=== PATIENT | male | born 1965 | race American Indian/Alaskan Native ===

== ENCOUNTER 2016-12-25 02:47 | Emergency (ER) | payer MEDICAID ==
[2016-12-25 03:06] VITALS: BP 151/112
[2016-12-25 03:51] LABS: Basophils % (Auto) 0.5 % (0.0-1.8); Eosinophils % (Auto) 1.3 % (0.0-4.3); Hemoglobin 13.4 gm/dl (11.8-15.2); Mean Corpuscular HGB Conc 33 % (32-34); Mean Corpuscular Hemoglobin 30 pg (28-32); Mean Corpuscular Volume 91 fl (84-94); Platelet Count 210 K/mm3 (140-440); Red Blood Count 4.39 M/mm3 (3.65-5.03); Red Cell Distribution Width 14.4 % (13.2-15.2); White Blood Count 5.7 K/mm3 (4.5-11.0)
[2016-12-25 04:05] LABS: BUN/Creatinine Ratio 8.88; Blood Urea Nitrogen 8 mg/dL (9-20); Calcium 8.7 mg/dL (8.4-10.2); Carbon Dioxide 23 mmol/L (22-30); Chloride 98.4 mmol/L (98-107); Glucose 100 mg/dL (75-100); Potassium 3.8 mmol/L (3.6-5.0); Sodium 138 mmol/L (137-145)
[2016-12-25 04:09] LABS: Anion Gap 20 mmol/L
--- NOTE | 2016-12-26 18:40 | ED Elopement Review ---
ED Pt Elopement review - Results review Lab results: Laboratory Tests 12/25/16 12/25/16 03:26 03:26 WBC 5.7 RBC 4.39 Hgb 13.4 Hct 40.0 MCV 91 MCH 30 MCHC 33 RDW 14.4 Plt Count 210 Lymph % (Auto) 33.1 [place] % (Auto) 12.8 H Eos % (Auto) 1.3 Baso % (Auto) 0.5 Lymph # 1.9 [place] # 0.7 Eos # 0.1 Baso # 0.0 Seg Neutrophils % 52.3 Seg Neutrophils # 3.0 Sodium 138 Potassium 3.8 Chloride 98.4 Carbon Dioxide 23 Anion Gap 20 BUN 8 L Creatinine 0.9 Estimated GFR > 60 BUN/Creatinine Ratio 8.88 Glucose 100 Calcium 8.7 Troponin T < 0.010 - Call Back decision Pt Call Back Decision: Call pt to return to ED GABINO ("feeling faint" and tachycardia should be addressed)
== END 2016-12-25 03:30 | disposition left against medical advice (07) ==
LOC: ED 02:47
DX: R51 Headache (principal); M54.9 Dorsalgia, unspecified; Z53.21 Procedure and treatment not carried out due to patient leaving prior to being seen by health care provider
CPT/HCPCS: 36415; 80048; 84484; 85025; 93005; 93010

== ENCOUNTER 2016-12-25 19:30 | Emergency (ER) | payer MEDICAID | END 2016-12-25 19:50 | disposition left against medical advice (07) | LOC: ED 19:30 | DX: M25.559 Pain in unspecified hip (principal); Z53.21 Procedure and treatment not carried out due to patient leaving prior to being seen by health care provider ==

== ENCOUNTER 2021-09-02 07:56 | Inpatient (IN) | payer MEDICAID ==
[2021-09-02] MEDS ORDERED: SODIUM CHLORIDE 0.9% 500 ML 500 ML IV ONE ×2 (08:53→11:41)
[2021-09-02] MEDS ORDERED: CEFEPIME/NS 2 GM/100 ML 2 GM/100 ML BAG IV ONE (09:01)
[2021-09-02] MEDS ORDERED: metroNIDAZOLE/NS 500 MG/100 ML 500 MG/100 ML BAG IV ONE (09:01)
--- NOTE | 2021-09-02 09:18 | Emergency Department Report ---
HPI - General Chief Complaint: Pain General Time Seen by Provider: 09/02/21 08:29 - HPI HPI: 55-year-old male with history of CAD and CHF as well as nonsustained V. tach on beta-blockers and HIV not currently on antiretroviral therapy presents with a number of symptoms, namely, worsening low back pain over the past 2 weeks as well as lower extremity weakness for 1 day. The patient states that he has a history of spine surgery which happened several years ago. He says that about 3 weeks ago he suffered a fall where he landed on his back. Since then he has had worsening and progressing lower back pain. He has been taking intermittent Tylenol and Percocet for the pain. He also reports body aches, fevers, night sweats, cough, and intermittent left-sided chest pain over that same period of time. He describes chest pain as sharp, located in the left side of the chest and nonradiating lasting only a few seconds. This happens at random and is not associated with any other ACS symptoms. He says that over the last 1 day he has noticed decreased ability to walk and eventually unable to lift his legs off the bed or ambulate. On review of systems he does say that he has had some bowel/bladder incontinence over the past week. He denies saddle anesthesia. The patient denies any vision change, neck pain, headache, shortness of breath, abdominal pain, nausea/vomiting, dysuria, or any other complaints. He says he is vaccinated against COVID-19. ED Past Medical Hx - Past Medical History Hx Hypertension: Yes Hx Heart Attack/AMI: Yes (x 2) Hx Congestive Heart Failure: Yes Hx Liver Disease: Yes (hep B and hep C) Hx Arthritis: Yes (osteoarthritis) Hx HIV: Yes (No meds, unknown CD4 count) Additional medical history: sleep apnea - Surgical History Past Surgical History?: Yes Hx Coronary Stent: Yes (x 2) Additional Surgical History: neck surgery, back surgery - Social History Smoking Status: Current Every Day Smoker - Medications Home Medications: Home Medications Medication Instructions Recorded Confirmed Last Taken Type Albuterol Mdi (or & Nicu Only) 2 puff IH QID PRN #8.5 gram 08/08/21 09/02/21 Unknown Rx [ProAir HFA Inhaler] Furosemide [Lasix TAB] 20 mg PO QDAY #10 tablet 08/08/21 09/02/21 Unknown Rx Aspirin EC [Halfprin EC] 81 mg PO QDAY 30 Days #30 tablet 08/13/21 09/03/21 09/01/21 Rx AtorvaSTATin [Lipitor] 40 mg PO QHS 30 Days #30 tablet 08/13/21 09/02/21 Unknown Rx Metoprolol [Lopressor TAB] 50 mg PO BID 60 Days #30 tablet 08/13/21 09/02/21 Unknown Rx Spironolactone [Aldactone] 25 mg PO QDAY 30 Days #30 tablet 08/13/21 09/02/21 Unknown Rx Gabapentin 1 - 2 cap PO DAILY 09/03/21 09/03/21 Unknown History HYDROcodone/APAP 10-325 [[place] 2 tab PO QDAY 09/03/21 09/03/21 Unknown History 10-325 mg TAB] Hydrocodone Bit/Homatrop Me-Br 10 ml PO BID PRN 09/03/21 09/03/21 Unknown History [Hycodan 5 mg-1.5 mg/5 ml Soln] Hydrocortisone 2.5% [Hytone 2.5% 1 unit TP DAILY 09/03/21 09/03/21 Unknown History CREAM] Lidocaine [Lidoderm] 1 each TP DAILY 09/03/21 09/03/21 Unknown History Menthol [Biofreeze] 1 unit TP BID 09/03/21 09/03/21 Unknown History Oxycodone HCl/Acetaminophen 2 tab PO Q6H PRN 09/03/21 09/03/21 09/02/21 History [Percocet 10/325 mg] QUEtiapine [SEROquel] 200 mg PO QHS 09/03/21 09/03/21 Unknown History diphenhydrAMINE [Benadryl CAP] 50 mg PO BID 09/03/21 09/03/21 Unknown History lisinopriL [Lisinopril] 10 mg PO QDAY 09/03/21 09/03/21 Unknown History ED Review of Systems ROS: Stated complaint: BACK/HIP/HEART/TOOTH Other details as noted in HPI Comment: All other systems reviewed and negative Constitutional: chills, fever, other (nightsweats) Eyes: denies: eye pain, vision change ENT: denies: throat pain, congestion Respiratory: cough. denies: shortness of breath Cardiovascular: chest pain. denies: palpitations, syncope Gastrointestinal: other (bowel incontinence). denies: abdominal pain, nausea, vomiting Genitourinary: other (urinary incontinence). denies: dysuria Musculoskeletal: back pain Skin: denies: rash, lesions Neurological: weakness, numbness, paresthesias. denies: headache Physical Exam - Physical Exam Vital Signs: Vital Signs 09/02/21 08:02 Temperature 98 F Pulse Rate 110 H Respiratory 16 Rate Blood Pressure 140/83 [Left] O2 Sat by Pulse 97 Oximetry Physical Exam: GENERAL: Thin and frail male who appears older than stated age in mild distress secondary to pain. HEAD: Normocephalic. No obvious signs of trauma. ENT: Slightly dry mucous membranes. Extremely poor dentition with multiple caries including large right lower molar caries which is necrotic and with adjacent swelling of the buccal mucosa without fluctuance or obvious drainable abscess. EYES: Extraocular movements are intact. Pupils are equal round and reactive to light bilaterally NECK: Supple. Full ROM is intact. Trachea is midline. LUNGS: Nonlabored breathing. Equal chest rise bilaterally. Clear to auscultation bilaterally. CARDIOVASCULAR: Tachycardic but with regular rhythm. No murmurs or rubs apprecia edgardo. VASCULAR: Cap refill < 2 seconds. 2+ peripheral pulses. 2+ pitting edema bilaterally ABDOMEN: Abdomen is soft and nondistended. There is no significant tenderness, guarding or rebound. SKIN: Skin is warm and dry NEURO: Patient is awake, alert, and oriented. dermatology physician assistant II-XII grossly intact. Normal speech. There is profound weakness of the bilateral lower extremities just below the hip with significant bilateral lower extremity drift which hits the bed after a few seconds. In addition, there is decreased sensation to light touch noted of the entire right lower extremity just below the hip. Normal sensation throughout the left lower extremity as well as bilateral upper extremities. MUSCULOSKELETAL: No obvious deformities. No significant tenderness or joint warmth/swelling. BACK/SPINE: No there is midline tenderness noted of the lower lumbar spine only. No costovertebral angle tenderness. ED Course Vital Signs 09/02/21 08:02 Temperature 98 F Pulse Rate 110 H Respiratory 16 Rate Blood Pressure 140/83 [Left] O2 Sat by Pulse 97 Oximetry ED Medical Decision Making - Lab Data Result diagrams: 09/03/21 04:32 09/03/21 04:32 Lab Results 09/02/21 09/02/21 09/02/21 Range/Units 09:06 09:09 09:09 WBC 3.9 L (4.5-11.0) K/mm3 RBC 4.12 (3.65-5.03) M/mm3 Hgb 12.4 (11.8-15.2) gm/dl Hct 37.7 (35.5-45.6) % MCV 92 (84-94) fl MCH 30 (28-32) pg MCHC 33 (32-34) % RDW 19.8 H (13.2-15.2) % Plt Count 172 (140-440) K/mm3 Lymph % (Auto) 21.2 (13.4-35.0) % [place] % (Auto) 15.4 H (0.0-7.3) % Eos % (Auto) 8.0 H (0.0-4.3) % Baso % (Auto) 1.1 (0.0-1.8) % Lymph # (Auto) 0.8 L (1.2-5.4) K/mm3 [place] # (Auto) 0.6 (0.0-0.8) K/mm3 Eos # (Auto) 0.3 (0.0-0.4) K/mm3 Baso # (Auto) 0.0 (0.0-0.1) K/mm3 Seg Neutrophils % 54.3 (40.0-70.0) % Seg Neutrophils # 2.1 (1.8-7.7) K/mm3 ESR 8 (0-20) mm/Hr PT (12.2-14.9) Sec. INR (0.87-1.13) APTT (24.2-36.6) Sec. D-Dimer 421.08 H (0-234) ng/mlDDU Sodium (137-145) mmol/L Potassium (3.6-5.0) mmol/L Chloride (98-107) mmol/L Carbon Dioxide (22-30) mmol/L Anion Gap mmol/L BUN (9-20) mg/dL Creatinine (0.8-1.3) mg/dL Estimated GFR ml/min BUN/Creatinine Ratio % Glucose (75-100) mg/dL POC Glucose (70-105) mg/dL Lactic Acid 3.10 H* (0.7-2.0) mmol/L Calcium (8.4-10.2) mg/dL Magnesium (1.7-2.3) mg/dL Ferritin (30.0-300.0) ng/mL Total Bilirubin (0.1-1.2) mg/dL Direct Bilirubin (0-0.2) mg/dL Indirect Bilirubin mg/dL AST (5-40) units/L ALT (7-56) units/L Alkaline Phosphatase (35-129) units/L Lactate Dehydrogenase (91-180) units/L Troponin T (0.00-0.029) ng/mL C-Reactive Protein (0.00-1.30) mg/dL NT-Pro-B Natriuret Pep (0-900) pg/mL Total Protein (6.3-8.2) g/dL Albumin (3.9-5) g/dL Albumin/Globulin Ratio % Lipase (13-60) units/L Salicylates (2.8-20.0) mg/dL Acetaminophen (10.0-30.0) ug/mL Plasma/Serum Alcohol (0-0.07) % 09/02/21 09/02/21 09/02/21 Range/Units 09:09 09:09 09:09 WBC (4.5-11.0) K/mm3 RBC (3.65-5.03) M/mm3 Hgb (11.8-15.2) gm/dl Hct (35.5-45.6) % MCV (84-94) fl MCH (28-32) pg MCHC (32-34) % RDW (13.2-15.2) % Plt Count (140-440) K/mm3 Lymph % (Auto) (13.4-35.0) % [place] % (Auto) (0.0-7.3) % Eos % (Auto) (0.0-4.3) % Baso % (Auto) (0.0-1.8) % Lymph # (Auto) (1.2-5.4) K/mm3 [place] # (Auto) (0.0-0.8) K/mm3 Eos # (Auto) (0.0-0.4) K/mm3 Baso # (Auto) (0.0-0.1) K/mm3 Seg Neutrophils % (40.0-70.0) % Seg Neutrophils # (1.8-7.7) K/mm3 ESR (0-20) mm/Hr PT 13.2 (12.2-14.9) Sec. INR 0.95 (0.87-1.13) APTT 30.6 (24.2-36.6) Sec. D-Dimer (0-234) ng/mlDDU Sodium 139 (137-145) mmol/L Potassium 3.9 (3.6-5.0) mmol/L Chloride 103.5 (98-107) mmol/L Carbon Dioxide 21 L (22-30) mmol/L Anion Gap 18 mmol/L BUN 5 L (9-20) mg/dL Creatinine 0.7 L (0.8-1.3) mg/dL Estimated GFR > 60 ml/min BUN/Creatinine Ratio 7 % Glucose 63 L (75-100) mg/dL POC Glucose (70-105) mg/dL Lactic Acid (0.7-2.0) mmol/L Calcium 8.5 (8.4-10.2) mg/dL Magnesium 1.70 (1.7-2.3) mg/dL Ferritin (30.0-300.0) ng/mL Total Bilirubin 0.60 (0.1-1.2) mg/dL Direct Bilirubin 0.2 (0-0.2) mg/dL Indirect Bilirubin 0.4 mg/dL AST 92 H (5-40) units/L ALT 49 (7-56) units/L Alkaline Phosphatase 61 (35-129) units/L Lactate Dehydrogenase (91-180) units/L Troponin T 0.021 (0.00-0.029) ng/mL C-Reactive Protein (0.00-1.30) mg/dL NT-Pro-B Natriuret Pep 618.4 (0-900) pg/mL Total Protein 7.2 (6.3-8.2) g/dL Albumin 3.7 L (3.9-5) g/dL Albumin/Globulin Ratio 1.1 % Lipase 61 H (13-60) units/L Salicylates (2.8-20.0) mg/dL Acetaminophen (10.0-30.0) ug/mL Plasma/Serum Alcohol (0-0.07) % 09/02/21 09/02/2109/02/21 Range/Units 09:09 09:09 09:09 WBC (4.5-11.0) K/mm3 RBC (3.65-5.03) M/mm3 Hgb (11.8-15.2) gm/dl Hct (35.5-45.6) % MCV (84-94) fl MCH (28-32) pg MCHC (32-34) % RDW (13.2-15.2) % Plt Count (140-440) K/mm3 Lymph % (Auto) (13.4-35.0) % [place] % (Auto) (0.0-7.3) % Eos % (Auto) (0.0-4.3) % Baso % (Auto) (0.0-1.8) % Lymph # (Auto) (1.2-5.4) K/mm3 [place] # (Auto) (0.0-0.8) K/mm3 Eos # (Auto) (0.0-0.4) K/mm3 Baso # (Auto) (0.0-0.1) K/mm3 Seg Neutrophils % (40.0-70.0) % Seg Neutrophils # (1.8-7.7) K/mm3 ESR (0-20) mm/Hr PT (12.2-14.9) Sec. INR (0.87-1.13) APTT (24.2-36.6) Sec. D-Dimer (0-234) ng/mlDDU Sodium (137-145) mmol/L Potassium (3.6-5.0) mmol/L Chloride (98-107) mmol/L Carbon Dioxide (22-30) mmol/L Anion Gap mmol/L BUN (9-20) mg/dL Creatinine (0.8-1.3) mg/dL Estimated GFR ml/min BUN/Creatinine Ratio % Glucose (75-100) mg/dL POC Glucose (70-105) mg/dL Lactic Acid (0.7-2.0) mmol/L Calcium (8.4-10.2) mg/dL Magnesium (1.7-2.3) mg/dL Ferritin (30.0-300.0) ng/mL Total Bilirubin (0.1-1.2) mg/dL Direct Bilirubin (0-0.2) mg/dL Indirect Bilirubin mg/dL AST (5-40) units/L ALT (7-56) units/L Alkaline Phosphatase (35-129) units/L Lactate Dehydrogenase (91-180) units/L Troponin T (0.00-0.029) ng/mL C-Reactive Protein (0.00-1.30) mg/dL NT-Pro-B Natriuret Pep (0-900) pg/mL Total Protein (6.3-8.2) g/dL Albumin (3.9-5) g/dL Albumin/Globulin Ratio % Lipase (13-60) units/L Salicylates < 0.3 L (2.8-20.0) mg/dL Acetaminophen 15.2 (10.0-30.0) ug/mL Plasma/Serum Alcohol 0.08 H (0-0.07) % 09/02/21 09/02/21 09/02/21 Range/Units 09:09 14:02 14:02 WBC (4.5-11.0) K/mm3 RBC (3.65-5.03) M/mm3 Hgb (11.8-15.2) gm/dl Hct (35.5-45.6) % MCV (84-94) fl MCH (28-32) pg MCHC (32-34) % RDW (13.2-15.2) % Plt Count (140-440) K/mm3 Lymph % (Auto) (13.4-35.0) % [place] % (Auto) (0.0-7.3) % Eos % (Auto) (0.0-4.3) % Baso % (Auto) (0.0-1.8) % Lymph # (Auto) (1.2-5.4) K/mm3 [place] # (Auto) (0.0-0.8) K/mm3 Eos # (Auto) (0.0-0.4) K/mm3 Baso # (Auto) (0.0-0.1) K/mm3 Seg Neutrophils % (40.0-70.0) % Seg Neutrophils # (1.8-7.7) K/mm3 ESR (0-20) mm/Hr PT (12.2-14.9) Sec. INR (0.87-1.13) APTT (24.2-36.6) Sec. D-Dimer (0-234) ng/mlDDU Sodium (137-145) mmol/L Potassium (3.6-5.0) mmol/L Chloride (98-107) mmol/L Carbon Dioxide (22-30) mmol/L Anion Gap mmol/L BUN (9-20) mg/dL Creatinine (0.8-1.3) mg/dL Estimated GFR ml/min BUN/Creatinine Ratio % Glucose (75-100) mg/dL POC Glucose (70-105) mg/dL Lactic Acid 1.90 (0.7-2.0) mmol/L Calcium (8.4-10.2) mg/dL Magnesium (1.7-2.3) mg/dL Ferritin (30.0-300.0) ng/mL Total Bilirubin (0.1-1.2) mg/dL Direct Bilirubin (0-0.2) mg/dL Indirect Bilirubin mg/dL AST (5-40) units/L ALT (7-56) units/L Alkaline Phosphatase (35-129) units/L Lactate Dehydrogenase (91-180) units/L Troponin T 0.016 (0.00-0.029) ng/mL C-Reactive Protein 0.00 (0.00-1.30) mg/dL NT-Pro-B Natriuret Pep (0-900) pg/mL Total Protein (6.3-8.2) g/dL Albumin (3.9-5) g/dL Albumin/Globulin Ratio % Lipase (13-60) units/L Salicylates (2.8-20.0) mg/dL Acetaminophen (10.0-30.0) ug/mL Plasma/Serum Alcohol (0-0.07) % 09/02/21 09/02/21 09/02/21 Range/Units 14:39 14:39 16:08 WBC (4.5-11.0) K/mm3 RBC (3.65-5.03) M/mm3 Hgb (11.8-15.2) gm/dl Hct (35.5-45.6) % MCV (84-94) fl MCH (28-32) pg MCHC (32-34) % RDW (13.2-15.2) % Plt Count (140-440) K/mm3 Lymph % (Auto) (13.4-35.0) % [place] % (Auto) (0.0-7.3) % Eos % (Auto) (0.0-4.3) % Baso % (Auto) (0.0-1.8) % Lymph # (Auto) (1.2-5.4) K/mm3 [place] # (Auto) (0.0-0.8) K/mm3 Eos # (Auto) (0.0-0.4) K/mm3 Baso # (Auto) (0.0-0.1) K/mm3 Seg Neutrophils % (40.0-70.0) % Seg Neutrophils # (1.8-7.7) K/mm3 ESR (0-20) mm/Hr PT (12.2-14.9) Sec. INR (0.87-1.13) APTT (24.2-36.6) Sec. D-Dimer (0-234) ng/mlDDU Sodium (137-145) mmol/L Potassium (3.6-5.0) mmol/L Chloride (98-107) mmol/L Carbon Dioxide (22-30) mmol/L Anion Gap mmol/L BUN (9-20) mg/dL Creatinine (0.8-1.3) mg/dL Estimated GFR ml/min BUN/Creatinine Ratio % Glucose 75 (75-100) mg/dL POC Glucose (70-105) mg/dL Lactic Acid (0.7-2.0) mmol/L Calcium (8.4-10.2) mg/dL Magnesium (1.7-2.3) mg/dL Ferritin 146.6 (30.0-300.0) ng/mL Total Bilirubin (0.1-1.2) mg/dL Direct Bilirubin (0-0.2) mg/dL Indirect Bilirubin mg/dL AST (5-40) units/L ALT (7-56) units/L Alkaline Phosphatase (35-129) units/L Lactate Dehydrogenase 375 H (91-180) units/L Troponin T 0.015 (0.00-0.029) ng/mL C-Reactive Protein 0.00 (0.00-1.30) mg/dL NT-Pro-B Natriuret Pep (0-900) pg/mL Total Protein (6.3-8.2) g/dL Albumin (3.9-5) g/dL Albumin/Globulin Ratio % Lipase (13-60) units/L Salicylates (2.8-20.0) mg/dL Acetaminophen (10.0-30.0) ug/mL Plasma/Serum Alcohol (0-0.07) % 09/02/21 Range/Units 16:51 WBC (4.5-11.0) K/mm3 RBC (3.65-5.03) M/mm3 Hgb (11.8-15.2) gm/dl Hct (35.5-45.6) % MCV (84-94) fl MCH (28-32) pg MCHC (32-34) % RDW (13.2-15.2) % Plt Count (140-440) K/mm3 Lymph % (Auto) (13.4-35.0) % [place] % (Auto) (0.0-7.3) % Eos % (Auto) (0.0-4.3) % Baso % (Auto) (0.0-1.8) % Lymph # (Auto) (1.2-5.4) K/mm3 [place] # (Auto) (0.0-0.8) K/mm3 Eos # (Auto) (0.0-0.4) K/mm3 Baso # (Auto) (0.0-0.1) K/mm3 Seg Neutrophils % (40.0-70.0) % Seg Neutrophils # (1.8-7.7) K/mm3 ESR (0-20) mm/Hr PT (12.2-14.9) Sec. INR (0.87-1.13) APTT (24.2-36.6) Sec. D-Dimer (0-234) ng/mlDDU Sodium (137-145) mmol/L Potassium (3.6-5.0) mmol/L Chloride (98-107) mmol/L Carbon Dioxide (22-30) mmol/L Anion Gap mmol/L BUN (9-20) mg/dL Creatinine (0.8-1.3) mg/dL Estimated GFR ml/min BUN/Creatinine Ratio % Glucose (75-100) mg/dL POC Glucose 82 (70-105) mg/dL Lactic Acid (0.7-2.0) mmol/L Calcium (8.4-10.2) mg/dL Magnesium (1.7-2.3) mg/dL Ferritin (30.0-300.0) ng/mL Total Bilirubin (0.1-1.2) mg/dL Direct Bilirubin (0-0.2) mg/dL Indirect Bilirubin mg/dL AST (5-40) units/L ALT (7-56) units/L Alkaline Phosphatase (35-129) units/L Lactate Dehydrogenase (91-180) units/L Troponin T (0.00-0.029) ng/mL C-Reactive Protein (0.00-1.30) mg/dL NT-Pro-B Natriuret Pep (0-900) pg/mL Total Protein (6.3-8.2) g/dL Albumin (3.9-5) g/dL Albumin/Globulin Ratio % Lipase (13-60) units/L Salicylates (2.8-20.0) mg/dL Acetaminophen (10.0-30.0) ug/mL Plasma/Serum Alcohol (0-0.07) % - Medical Decision Making 55-year-old male with history of CAD and CHF as well as nonsustained V. tach on beta-blockers and HIV not currently on antiretroviral therapy presents with 2 weeks of low back pain after a fall which has progressed over that period of time and now with acute onset of bilateral lower extremity weakness, right lower extremity numbness for 1 day. Also reports 1 week of bowel/bladder incontinence. Denies saddle anesthesia. Patient has a history of spine surgery which was performed approximately 2 years ago. Patient also reports intermittent left-sided chest pain lasting seconds. On initial assessment, the patient is noted to be tachycardic with a heart rate of 110. He is afebrile with the remaining vitals within normal limits other than slightly elevated blood pressure. Patient presented with highly concerning symptoms/complaints, especially in light of his medical history of CAD/CHF as well as HIV not currently on retroviral therapy. In addition, physical examination reveals several abnormalities including large necrotic right lower molar caries with adjacent buccal swelling suggestive of dental abscess. He has very severe weakness of the bilateral lower extremities and numbness of the right lower extremity with midline tenderness. We will perform very broad work-up with full set of labs including chest pain work-up and sepsis order set. We will obtain consultation from neurology as well as neurosurgery emergently given concern for possible cauda equina syndrome versus acute cord syndrome. We will obtain Noncon CT of the head, and contrasted CT of the jaw to assess for evidence of odontogenic infection/abscess versus deep space infection as well as CT of the C/T/L-spine to assess for evidence of traumatic injury versus epidural abscess versus other acute abnormality to explain the patient's current presentation. Given the patient's history of CHF and concern for possible volume overload I have ordered 500 cc of IV fluid. I have ordered broad-spectrum vancomycin/cefepime/Flagyl. Given my concern for possible acute spine emergency, I have ordered emergent MRI with and without contrast to assess for evidence of epidural abscess, acute cord injury, nerve impingement, cauda equina syndrome, or other significant abnormality to explain the patient's acute presentation. Pain medication has been ordered. Labs reveal white blood cell count of 3.9 but with absolute lymphocyte count of 800 which is highly suggestive of AIDS. Kidney function is normal and there are no significant electrolyte abnormalities. Troponin is negative. Lactate is elevated at 3.1 consistent with sepsis. I have ordered 30 mL/kg of IV fluids for treatment of sepsis. At 9:15 AM I spoke with Dr. Ny of teleneurology regarding the case. He agrees with my current work-up and recommends MRI of the entire spine with and without contrast. Noncon CT of the head reveals no acute abnormalities. At 10:15 AM I spoke with Dr. Salomon of neurosurgery regarding the case. He agrees with current work-up and request that he be paged immediately when the results of the MRI have returned CT of the neck was complicated by IV contrast infiltration but there is no obvious evidence of deep space infection although this is limited by the lack of contrast. CT of the C/T/L-spine revealed multiple spine degenerative changes as well as prior spinal surgery but no evidence of epidural abscess, although MRI is much more sensitive. No significant traumatic injuries appreciated on CT. MRI of the C/T/L-spine reveal multiple abnormalities and nerve compressions as well as significant thecal sac narrowing. Nonetheless, the patient apparently has had prior MRI during last admission and when I spoke to the radiologist over the phone he says that it is not significantly changed from this past MRI on 08/09 I again spoke with Dr. Salomon regarding the results of the MRI and he reports that there is no acute emergency or need for surgery at this time but that he will place further inpatient recommendations with full consultation. The p atient will be admitted to the hospital for further work-up and management. All this was discussed with the patient expressed understanding agreement with the plan of care I personally asked the patient's nurse Jeane 4 different times for an EKG but it was never performed Critical Care Time: Yes Critical care time in (mins) excluding proc time.: 55 Critical care attestation.: If time is entered above; I have spent that time in minutes in the direct care of this critically ill patient, excluding procedure time. 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
[2021-09-02] MEDS ORDERED: VANCOMYCIN 1,500 MG in SODIUM CHLORIDE 0.9% 500 ML 500 ML IV ONE (09:30)
--- NOTE | 2021-09-02 09:37 | XRay Report ---
CHEST 1 VIEW 09/02/2021 9:26 AM INDICATION / CLINICAL INFORMATION: sepsis. COMPARISON: 08/08/21 FINDINGS: SUPPORT DEVICES: None. HEART / MEDIASTINUM: No significant abnormality. LUNGS / PLEURA: No significant pulmonary or pleural abnormality. No pneumothorax. ADDITIONAL FINDINGS: No significant additional findings. IMPRESSION: 1. No acute findings. No change. Signer Name: Jurgen Castillo MD Signed: 09/02/2021 9:32 AM Workstation Name: [id number]
--- NOTE | 2021-09-02 09:48 | History and Physical Report ---
Medications and Allergies Allergies Allergy/AdvReac Type Severity Reaction Status Date / Time No Known Allergies Allergy Verified 08/08/21 20:31 Home Medications Medication Instructions Recorded Confirmed Last Taken Type Albuterol Mdi (or & Nicu Only) 2 puff IH QID PRN #8.5 gram 08/08/21 Unknown Rx [ProAir HFA Inhaler] Furosemide [Lasix] 20 mg PO QDAY #10 tablet 08/08/21 Unknown Rx Aspirin EC [Halfprin EC] 81 mg PO QDAY 30 Days #30 tablet 08/13/21 Unknown Rx AtorvaSTATin [Lipitor] 40 mg PO QHS 30 Days #30 tablet 08/13/21 Unknown Rx Metoprolol [Lopressor TAB] 50 mg PO BID 60 Days #30 tablet 08/13/21 Unknown Rx Spironolactone [Aldactone] 25 mg PO QDAY 30 Days #30 tablet 08/13/21 Unknown Rx lisinopriL [Zestril TAB] 5 mg PO QDAY 30 Days #30 tablet 08/13/21 Unknown Rx oxyCODONE /ACETAMINOPHEN [Percocet 2 tab PO Q6H PRN 5 Days #40 tablet 08/13/21 Unknown Rx 5/325 mg] Active Meds: Active Medications Vancomycin HCl 1,500 mg/ (Sodium Chloride) 530 mls @ 333 mls/hr IV ONCE ONE; Protocol Stop: 09/02/21 11:05 Physical Examination - Vital Signs Vital Signs: Vital Signs Temp Pulse Resp BP Pulse Ox 98 F 110 H 16 140/83 97 09/02/21 08:02 09/02/21 08:02 09/02/21 08:02 09/02/21 08:02 09/02/21 08:02 Assessment and Plan [facility] Consult Note # Demographics Consult Type: General Neurology Patient Location: Emergency Room First Name: Star Last Name: Young Date of : 1965 Age: 55 Gender: Male Facility: [facility] Time of Initial Page (Eastern Time): 09/02/2021, 09:08 Time of Return Call ( Time): 09/02/2021, 09:09 # HPI History: 55 yo man with history of HIV, not treated presents with tooth abscess and inability to walk, right lower extremity. According to the patient his leg symptoms started about a week ago with pain in his lower back. His symptoms progressed to cause bilateral leg weakness, right leg numbness. He admits to bowel and bladder incontinence. # Exam Vitals: vital signs reviewed Mental Status: awake alert and oriented x 3 follows commands Cranial Nerves: extra ocular movements intact Motor: Unable to lift bilateral legs off chair Sensory: Decreased sensation to light touch on right Additional Neurologic Exam: Inherent limitations of teleneurology evaluation cause difficulty with formal strength testing, sensory testing, reflex testing, lack of nursing assistance during exam # PMH-FH-SH Past Medical History: coronary artery disease congestive heart failure chronic kidney disease hypertension HIV, Hepatis C Social History: smoker daily drinker Medications: Doesn't remember names of medications Allergies: NKDA # Assessment Impression: Bilateral leg weakness, right leg numbness, bowel and bladder dysfunction. Symptoms concerning for spinal etiology. Broad differential including infectious, traumatic, demyelinating. Inherent limitations with teleneurology and patient participation somewhat limitting. # Plan Other: I have discussed my recommendations with the referring provider Additional Recommendations: : Stat MRI C,T, L spine with and witihout contrast Further diagnostis recommendations pending MRI results. Potential future testing include spinal tap, bloodwork, MRI brain Disposition: admit # Logistics Telemedicine: Interactive 2 way audio and visual telecommunication technology was utilized during this visit
[2021-09-02 10:15] LABS: Basophils % (Auto) 1.1 % (0.0-1.8); Eosinophils # (Auto) 0.3 K/mm3 (0.0-0.4); Hematocrit 37.7 % (35.5-45.6); Hemoglobin 12.4 gm/dl (11.8-15.2); Lymphocytes # (Auto) 0.8 K/mm3 (1.2-5.4); Lymphocytes % (Auto) 21.2 % (13.4-35.0); Mean Corpuscular HGB Conc 33 % (32-34); Mean Corpuscular Volume 92 fl (84-94); Monocytes # (Auto) 0.6 K/mm3 (0.0-0.8); Monocytes % (Auto) 15.4 % (0.0-7.3); Platelet Count 172 K/mm3 (140-440); Red Blood Count 4.12 M/mm3 (3.65-5.03); Red Cell Distribution Width 19.8 % (13.2-15.2)
[2021-09-02 10:17] LABS: Alanine Aminotransferase 49 units/L (7-56); Albumin 3.7 g/dL (3.9-5); Bilirubin,Direct 0.2 mg/dL (0-0.2); Blood Urea Nitrogen 5 mg/dL (9-20); Calcium 8.5 mg/dL (8.4-10.2); Hemolysis Index 10
[2021-09-02 10:35] LABS: BUN/Creatinine Ratio 7
[2021-09-02] MEDS ORDERED: SODIUM CHLORIDE 0.9% 1000 ML 1,000 ML IV ONE (11:41)
--- NOTE | 2021-09-02 11:49 | Cat Scan Report ---
NONENHANCED CT SCAN OF THE HEAD: INDICATION / CLINICAL INFORMATION: 55 years Male; Lower extrem weakness. TECHNIQUE: Routine CT head without contrast. All CT scans at this location are performed using CT dos e reduction for ALARA by means of automated exposure control. COMPARISON: None. FINDINGS: BRAIN / INTRACRANIAL CONTENTS: No intracerebral hemorrhage or stroke mimics No acute hemorrhage, mass effect, midline shift, hydrocephalus, or acute, large territorial infarct. Low-attenuation areas in the left corpus striatum; small vessel disease; age indeterminate; low-atte nuation white matter lesions due to chronic small vessel disease; precentral gyri and paracentral lob ule normal bilaterally; no focal lesions in the brainstem or in the cerebellar hemispheres CRANIOCERVICAL JUNCTION: No significant abnormality. ORBITS: No significant abnormality of visualized orbits. SINUSES / MASTOIDS: No significant abnormality of the visualized paranasal sinuses or mastoid air ortega ls. ADDITIONAL FINDINGS: Bony remodeling of the left zygomatic arch due to old healed fracture IMPRESSION: No Intracerebral hemorrhage or stroke mimics No acute focal parenchymal lesion in the brain Signer Name: Mimi Goldsmith MD Signed: 09/02/2021 11:44 AM Workstation Name: [id number]
--- NOTE | 2021-09-02 12:08 | Cat Scan Report ---
CT NECK WITH CONTRAST HISTORY: Infection of the jaw COMPARISON: None. TECHNIQUE: Routine CT of the neck is performed following intravenous contrast. All CT scans at this [facility] are performed using CT dose reduction for ALARA by means of automated exposure control. Pleas e note though iodinated contrast was given intravenously, no opacification of the cavernous sinuses, internal jugular vein are carotid arteries in the neck. Please check the intravenous site for contras t infiltration. CONTRAST: 100 mL Omnipaque 300 FINDINGS: Mandible, oral cavity and floor of the mouth: Sclerotic changes in the medullary cavity of the mandib le more on the right side due to chronic osteitis; though only a few teeth remaining, root abscesses seen bilaterally difficult to determine which exact acute; approximately 15 mm sized bony defect near the posterior body of the mandible on the left side adjacent to the angle of the mandible; well-nidhi icated; probably Staphne defect (lingual salivary gland inclusion defect) Unable to evaluate the sublingual space because of lack of intravenous contrast. Facial region: Minimal soft tissue thickening in the cheek bilaterally Skull Base: No significant abnormality. Parotid, Carotid, Retropharyngeal, Prevertebral, Pharyngeal Mucosal, and Associate Software Development Engineer Spaces: Right fau cial insular regions swollen mildly displacing the airway Airway: Patent and without significant abno rmality. Lymphatics: No lymphadenopathy. Vasculature: No significant abnormality. Osseous Structures: Posterior cervical fusion at C6-C7; spondylotic changes at C3-C4, C4-C5 and C5-C6 disc levels Additional findings: None. IMPRESSION: Chronic changes in the mandible bilaterally; few root abscesses on either side Without intravenous contrast, difficult to evaluate the sublingual space Right faucial tonsillar region;; without intravenous contrast, unable to look for abscess; airway is mildly displaced but not compromised Technologist informs me that she has given 100 mL of Omnipaque 300. However, there is no vascular con trast in these images. Please check the intravenous site for infiltration. Signer Name: Mimi Goldsmith MD Signed: 09/02/2021 12:04 PM Workstation Name: [email or web address]
--- NOTE | 2021-09-02 12:27 | Cat Scan Report ---
CT thoracic spine w con INDICATION / CLINICAL INFORMATION: 55 years Male; assess epidural abscess, injury, weakness 100 ml omni 300 . TECHNIQUE: Axial CT images of the thoracic spine were obtained. Sagittal and coronal reformatted images were pr oduced. All CT scans at this location are performed using CT dose reduction for ALARA by means of aut omated exposure control. COMPARISON: None available. FINDINGS: POST-SURGICAL CHANGES: None. ALIGNMENT: The motion significantly degrades image quality. However, there appears to be mild curvatu re the upper thoracic spine, convex toward the right. There is no clear evidence of significant spond ylolisthesis at. VERTEBRAE: There are multilevel mild endplate changes involving the thoracic spine including mild ant erior osteophytic formation C7-T1. The motion results in offset of some the upper thoracic vertebral bodies. However, there is no gross CT evidence of acute fracture of the thoracic spine. INTERVERTEBRAL DISCS: There is moderate to right facet joint arthropathy at T11-12 with moderate righ t foraminal narrowing at. The disc bulge and ligament flavum hypertrophy also appear to mildly deform the ventral thecal sac at. There are milder degenerative the changes involving remaining thoracic se gments without clear CT evidence of significant bony spinal stenosis. PARASPINAL SOFT TISSUES: No definitive paraspinal fluid collections or enhancing lesions are identifi ed at. Should be noted that MRI would be more sensitive for epidural process in this patient with his tory of "SS epidural abscess". MRI of the cervical, thoracic and lumbar spine are ordered separately. ADDITIONAL FINDINGS: None. IMPRESSION: 1. The study is limited by motion. However, there are multilevel degenerative the changes involving t horacic spine without gross CT evidence of acute compression or fracture or significant bony of spina l stenosis. 2. In the patient's folder, MRI exams of the entire spine are ordered separately which would be more sensitive for epidural process and this patient with history of "assess epidural abscess". No definit adeola paraspinal fluid collections or endplate erosive changes are seen on the current study. Signer Name: Chris Burton MD Signed: 09/02/2021 12:23 PM Workstation Name: [id number]
[2021-09-02 12:37] LABS: INR 0.95 (0.87-1.13)
[2021-09-02 12:52] LABS: Partial Thromboplastin Time 30.6 Sec. (24.2-36.6)
--- NOTE | 2021-09-02 13:07 | Cat Scan Report ---
CT LUMBAR SPINE WITH CONTRAST HISTORY: Injury; "assess epidural abscess" COMPARISON: MR scan of the lumbar spine from 08/09/[address] scan of the lumbar spine from 08/08/2021 TECHNIQUE: CT images of the lumbar spine were obtained without contrast. Sagittal and coronal reform ats were post-processed.All CT scans at this location are performed using CT dose reduction for ALARA by means of automated exposure control. CONTRAST: 100 mL Omnipaque 350 FINDINGS: Alignment: Kyphosis centering at L3-L4 disc level: grade 1-2 retrolisthesis at L3-L4 disc level Vertebrae:T11, T12, L1, L2 and the L5 vertebral bodies normal L3 and L4 vertebral bodies: Sclerotic changes along the endplates; disc height loss; the MRI scan, ma rrow signal preserved; CT findings unchanged; laminectomy changes at L3 and L4; no CT findings to sug gest epidural abscess though MRI scan would be more sensitive. Please note in the MRI scan from 2020, no evidence of epidural abscess. Disc Spaces: T11-T12 and T12-L1: Normal L1-L2: Bulging disc; neuroforamina are normal: Mild facet joint hypertrophic changes L2-L3: Right foraminal disc bulge L3-L4: Decompressive laminectomy; sclerotic changes due to degeneration; grade 1-2 anterolisthesis; r ight foraminal stenoses L4-L5: Grade 1-2 anterolisthesis; decompressive craniectomy; bilateral foraminal and lateral recess s tenoses L5-S1: Lateral facet joint degenerative changes; midline disc bulge; mild central canal stenosis Dorsal epidural space: Low-attenuation from normal epidural fat is seen at T11, T12, L1, L2 and L5 ve rtebral body levels. Because of laminectomy, difficult to evaluate the epidural space at L3 and L4 le vels. Additional Findings: None IMPRESSION: In this contrast enhanced CT scan of the lumbar spine, no definite epidural abscess seen; however, pl ease note, MRI scan would be more sensitive CT findings unchanged Signer Name: Mimi Goldsmith MD Signed: 09/02/2021 1:02 PM Workstation Name: [id number]
[2021-09-02 13:10] LABS: Erythrocyte Sedimentation Rate 8 mm/Hr (0-20)
[2021-09-02] MEDS ORDERED: HYDROmorphone 1 MG/1 ML INJ IV ONE (14:10)
--- NOTE | 2021-09-02 14:24 | Magnetic Resonance Report ---
MR lumbar spine wo/w con INDICATION / CLINICAL INFORMATION: 55 years Male; assess for epidural abscess, acute cord syndrome. TECHNIQUE: Multisequence, multiplanar images of the lumbar spine were obtained. Motion artifact is present. COMPARISON: FINDINGS: POST-SURGICAL CHANGES: Partial, bilateral hemilaminectomies seen at L3-4 and L4-5. Similar findings s een on prior. ALIGNMENT: Kyphosis is seen, centered about the L3-4 level. There is grade 2 anterolisthesis of L4 wi th respect to L3, which may be on a postsurgical basis. There is also grade 1/2 anterolisthesis of L5 with respect to L4, which appears to be on a degenerative basis. Similar findings seen on prior. VERTEBRAE:Loss of height is seen at L3 and L4, most likely on a chronic degenerative basis. Similar f indings seen on prior. Modic type I and II endplate changes seen at L3-4 and L4-5. These findings may be a source of back pa in. Similar findings seen on prior. Atypical hemangioma suggested at L2. More typical appearing hemangiomata are seen at L5 and S1, as we ll as L1. VISUALIZED SPINAL CORD AND VERTEBRAL CANAL: No significant abnormality. There is suggestion of a prominent, anterior epidural fluid collection at the L4 and L5 levels. Simil ar findings to a much lesser degree seen at L1, L2, and L3 Prominent basal vertebral plexus might be a consideration as well. These findings result in significant thecal sac narrowing extending from the pedicular level of L4 to the infrapedicular level of L5. The AP diameter of the thecal sac at the pe dicular level of L4 is approximately 3-4 mm and at the pedicular level of L5 is approximately 5-6 mm. Similar findings seen on prior. INTERVERTEBRAL DISCS: Multilevel disc desiccation noted. Narrowing seen at L3-4. OVWRU-EU-DFFFI ANALYSIS: L1-2: Mild to moderate disc bulge and mild facet hypertrophy. Mild to moderate thecal sac narrowing s een, a component of which is related to posterior epidural fat. Moderate foraminal narrowing on the l eft and mild on the right. There is encroachment upon the left L1 nerve. Findings a mildly progressed from prior. L2-3: Mild to moderate disc bulge and moderate facet hypertrophy. Moderate thecal sac narrowing seen, a component of which is related epidural fat. Lateral recess narrowing seen in the left, which may e ncroach upon the left L3 nerve. [id number] foraminal narrowing on the right and moderate on the left. There is mild encroachment upon the left L2 nerve without impingement. Similar findings seen o n prior. L3-4: As above. Moderate canal narrowing. Moderate foraminal narrowing bilaterally because of spondyl osis, with encroachment upon L3 nerves. Similar findings seen on prior. L4-5: As above. Moderate to marked foraminal narrowing on the left and moderate on the right from fac et hypertrophy and spondylosis. There is encroachment upon and probable flattening of the L4 nerves b ilaterally. Similar findings seen on prior. L5-S1: Mild disc bulge and [id number] facet hypertrophy. Moderate to marked foraminal narrowing on the left and moderate on the right from facet hypertrophy and spondylosis with encroachment upon L5 nerves. Similar findings seen on prior. PARASPINAL SOFT TISSUES: No significant abnormality. ADDITIONAL FINDINGS: None. IMPRESSION: 1. Degenerative and postoperative changes of the lumbar spine as described above. Significant finding s are seen at multiple levels. Most marked foraminal narrowing appears to be at L4-5, followed by L5- S1 and L3-4. 2. Anterior epidural fluid collection and/or prominent basal vertebral plexus, as described above. Si gnificant thecal sac narrowing seen at L4 and L5. 3. Significant, chronic degenerative changes at L3-4 resulting in significant lumbar kyphosis and lis thesis. Signer Name: Eyad Torre MD, III Signed: 09/02/2021 2:20 PM Workstation Name: [id number]
--- NOTE | 2021-09-02 14:39 | Magnetic Resonance Report ---
MRI CERVICAL SPINE WITHOUT AND WITH CONTRAST INDICATION / CLINICAL INFORMATION: assess for epidural abscess, acute cord syndrome. TECHNIQUE: Multisequence, multiplanar images of the cervical spine were obtained. COMPARISON: CT scan of the neck obtained earlier today FINDINGS: CRANIOCERVICAL JUNCTION:No significant abnormality. ALIGNMENT: No significant abnormality. VERTEBRAE:Normal marrow signal and vertebral body height for age. VISUALIZED SPINAL CORD: No significant abnormality. No focal cord signal intensity changes; transvers e images through the neck are marred by motion related artifacts EPIDURAL SPACE: Susceptibility changes from the hardware at C6-C7 level obscuring the details; no shelli dence of epidural abscess in other levels [id number] ANALYSIS: C2-3: No significant disc abnormality, spinal canal stenosis, or neural foraminal stenosis. C3-4: Disc osteophyte complex extending bilaterally; bilateral foraminal stenoses; spinal cord is not compromised C4-5: Disc osteophyte complex extending bilaterally; moderate bilateral foraminal stenoses C5-6: Disc osteophyte complex extending bilaterally; bilateral foraminal stenoses C6-7: Posterior cervical fusion with laminar screws; neuroforamina are normal; C7-T1: Shallow disc protrusion extending bilaterally; bilateral foraminal stenoses No enhancing intradural lesion PARASPINAL SOFT TISSUES: No significant abnormality. ADDITIONAL FINDINGS: None. IMPRESSION: Posterior cervical disc fusion at C6-C7 level with laminar screws Spondylotic changes with disc osteophyte complexes resulting in foraminal stenoses at C3-C4, C4-C5 an d C5-C6 disc levels Shallow disc protrusion at C7-T1 disc level resulting in bilateral foraminal stenoses No intradural lesions seen in the MRI scan Signer Name: Mimi Goldsmith MD Signed: 09/02/2021 2:35 PM Workstation Name: [id number]
--- NOTE | 2021-09-02 14:43 | Magnetic Resonance Report ---
MRI THORACIC SPINE WITHOUT AND WITH CONTRAST INDICATION / CLINICAL INFORMATION: assess for epidural abscess, acute cord syndrome. TECHNIQUE: Multisequence, multiplanar images of the thoracic spine were obtained. COMPARISON: None available. FINDINGS: ALIGNMENT: Normal thoracic kyphosis without significant scoliosis. VERTEBRAE:Normal marrow signal and vertebral body height for age. No evidence of vertebral osteomyeli tis VISUALIZED SPINAL CORD: No significant abnormality. No focal lesion in the thoracic spinal cord INTERVERTEBRAL DISCS: No significant abnormality. No discitis DEGENERATIVE FINDINGS: No significant degenerative findings. PARASPINAL SOFT TISSUES: No edematous changes in the paraspinal soft tissues ADDITIONAL FINDINGS: Epidural space normal IMPRESSION: No focal disc herniation, spinal canal stenosis or nerve root compression. No epidural lesions seen in the MRI scan Signer Name: Mimi Goldsmith MD Signed: 09/02/2021 2:39 PM Workstation Name: [id number]
--- NOTE | 2021-09-02 16:06 | Progress Note ---
Subjective Date of service: 09/02/21 Interval history: Consult received, imaging studies reviewed. At this time, I would not recommend surgical intervention. I will arrange for the patient to have an LSO brace. Recommend symptomatic treatment of his pain and his other medical co- morbidities. Full consult note to follow. Objective - Vital Sign Vital Signs - 12hr 09/02/21 09/02/21 08:02 14:28 Temperature 98 F Pulse Rate 110 H Respiratory 16 18 Rate Blood Pressure 140/83 [Left] O2 Sat by Pulse 97 Oximetry - Laboratory Findings CBC and BMP: 09/02/21 09:09 09/02/21 14:39 Abnormal Lab Findings: Abnormal Labs 09/02/21 09/02/21 09/02/21 09:09 09:09 09:09 WBC 3.9 L RDW 19.8 H [place] % (Auto) 15.4 H Eos % (Auto) 8.0 H Lymph # (Auto) 0.8 L Carbon Dioxide 21 L BUN 5 L Creatinine 0.7 L Glucose 63 L Lactic Acid 3.10 H* AST 92 H Lactate Dehydrogenase Albumin 3.7 L Lipase 61 H Salicylates Plasma/Serum Alcohol 09/02/21 09/02/21 09/02/21 09:09 09:09 14:39 WBC RDW [place] % (Auto) Eos % (Auto) Lymph # (Auto) Carbon Dioxide BUN Creatinine Glucose Lactic Acid AST Lactate Dehydrogenase 375 H Albumin Lipase Salicylates < 0.3 L Plasma/Serum Alcohol 0.08 H
[2021-09-02] MEDS ORDERED: ALBUTEROL 8.5 GM MDI INHALATION IH PRN (18:06)
--- NOTE | 2021-09-02 18:06 | History and Physical Report ---
History of Present Illness Date of examination: 09/02/21 Date of admission: 09/02/2021 Chief complaint: Difficulty walking History of present illness: 55-year-old male with history of CHF HIV coronary artery disease chronic kidney disease hypertension and hepatitis C not taking any antiretrovirals comes in for worsening back pain and difficulty walking for 2 weeks but more so for the last 1 day. Patient says is not able to walk. Patient has a history of C-spine s urgery 7 years ago. 3 weeks ago patient had a fall and landed on his back. Since then the pain and weakness have been progressively increasing. Patient takes Percocet intermittently. Also reports body aches fevers night sweats cough and intermittent left-sided chest pain over the same period of time. Chest pain is sharp. Unable to lift his legs. Also some bowel and bladder incontinence. No saddle anesthesia. Patient is vaccinated against COVID-19. - Past Medical History --Hypertension: Yes --Heart Attack/AMI: Yes (x 2) --Congestive Heart Failure: Yes --Liver Disease: Yes (hep B and hep C) --Arthritis: Yes (osteoarthritis) --HIV: Yes (No meds, unknown CD4 count) --Additional medical history: sleep apnea - Surgical History --Past Surgical History?: Yes --Coronary Stent: Yes (x 2) --Additional Surgical History: neck surgery, back surgery --Smoking Status: Current Every Day Smoker -Family history --Htn - Medications Home Medications: Home Medications Medication Instructions Recorded Confirmed Last Taken Type Albuterol Mdi (or & Nicu Only) 2 puff IH QID PRN #8.5 gram 08/08/21 09/02/21 Unknown Rx [ProAir HFA Inhaler] Furosemide [Lasix] 20 mg PO QDAY #10 tablet 08/08/21 09/02/21 Unknown Rx Aspirin EC [Halfprin EC] 81 mg PO QDAY 30 Days #30 tablet 08/13/21 09/02/21 Unknown Rx AtorvaSTATin [Lipitor] 40 mg PO QHS 30 Days #30 tablet 08/13/21 09/02/21 Unknown Rx Metoprolol [Lopressor TAB] 50 mg PO BID 60 Days #30 tablet 08/13/21 09/02/21 Unknown Rx Spironolactone [Aldactone] 25 mg PO QDAY 30 Days #30 tablet 08/13/21 09/02/21 Unknown Rx lisinopriL [Zestril TAB] 5 mg PO QDAY 30 Days #30 tablet 08/13/21 09/02/21 Unknown Rx oxyCODONE /ACETAMINOPHEN [Percocet 2 tab PO Q6H PRN 5 Days #40 tablet 08/13/21 09/02/21 Unknown Rx 5/325 mg] Review of Systems ROS: Constitutional no weight loss or weight gain no fever or chills HEENT no sore throat no post nasal drip no diplopia Neck no neck stiffness no lymph gland enlargement Chest and lungs no shortness of breath cough or wheezing CVS no chest pain no diaphoresis no palpitations GI no nausea no vomiting no diarrhea Genitourinary system no dysuria no flank pain Musculoskeletal system severe low back pain and inability to walk [employer] severe low back pain and unable to walk Skin no rash no itching Psychiatric no depression no homicidal or suicidal tendencies Hematologic no lymphedema or bruising Endocrine no polydipsia no polyuria no cold intolerance no heat intolerance Medications and Allergies Allergies Allergy/AdvReac Type Severity Reaction Status Date / Time No Known Allergies Allergy Verified 08/08/21 20:31 Home Medications Medication Instructions Recorded Confirmed Last Taken Type Albuterol Mdi (or & Nicu Only) 2 puff IH QID PRN #8.5 gram 08/08/21 09/02/21 Unknown Rx [ProAir HFA Inhaler] Furosemide [Lasix] 20 mg PO QDAY #10 tablet 08/08/21 09/02/21 Unknown Rx Aspirin EC [Halfprin EC] 81 mg PO QDAY 30 Days #30 tablet 08/13/21 09/02/21 Unknown Rx AtorvaSTATin [Lipitor] 40 mg PO QHS 30 Days #30 tablet 08/13/21 09/02/21 Unknown Rx Metoprolol [Lopressor TAB] 50 mg PO BID 60 Days #30 tablet 08/13/21 09/02/21 Unknown Rx Spironolactone [Aldactone] 25 mg PO QDAY 30 Days #30 tablet 08/13/21 09/02/21 Unknown Rx lisinopriL [Zestril TAB] 5 mg PO QDAY 30 Days #30 tablet 08/13/21 09/02/21 Unknown Rx oxyCODONE /ACETAMINOPHEN [Percocet 2 tab PO Q6H PRN 5 Days #40 tablet 08/13/21 09/02/21 Unknown Rx 5/325 mg] Exam - Constitutional Vitals: Temp Pulse Resp BP Pulse Ox 98 F 86 18 152/104 98 09/02/21 08:02 09/02/21 16:45 09/02/21 16:48 09/02/21 16:45 09/02/21 16:48 HEART Score - HEART Score Troponin: Troponin T 0.015 ng/mL (0.00-0.029) 09/02/21 16:08 Results - Labs CBC & Chem 7: 09/03/21 04:32 09/03/21 04:32 Labs: Laboratory Last Values WBC 3.9 K/mm3 (4.5-11.0) L 09/02/21 09:09 RBC 4.12 M/mm3 (3.65-5.03) 09/02/21 09:09 Hgb 12.4 gm/dl (11.8-15.2) 09/02/21 09:09 Hct 37.7 % (35.5-45.6) 09/02/21 09:09 MCV 92 fl (84-94) 09/02/21 09:09 MCH 30 pg (28-32) 09/02/21 09:09 MCHC 33 % (32-34) 09/02/21 09:09 RDW 19.8 % (13.2-15.2) H 09/02/21 09:09 Plt Count 172 K/mm3 (140-440) 09/02/21 09:09 Lymph % (Auto) 21.2 % (13.4-35.0) 09/02/21 09:09 [place] % (Auto) 15.4 % (0.0-7.3) H 09/02/21 09:09 Eos % (Auto) 8.0 % (0.0-4.3) H 09/02/21 09:09 Baso % (Auto) 1.1 % (0.0-1.8) 09/02/21 09:09 Lymph # (Auto) 0.8 K/mm3 (1.2-5.4) L 09/02/21 09:09 [place] # (Auto) 0.6 K/mm3 (0.0-0.8) 09/02/21 09:09 Eos # (Auto) 0.3 K/mm3 (0.0-0.4) 09/02/21 09:09 Baso # (Auto) 0.0 K/mm3 (0.0-0.1) 09/02/21 09:09 Seg Neutrophils % 54.3 % (40.0-70.0) 09/02/21 09:09 Seg Neutrophils # 2.1 K/mm3 (1.8-7.7) 09/02/21 09:09 ESR 8 mm/Hr (0-20) 09/02/21 09:09 PT 13.2 Sec. (12.2-14.9) 09/02/21 09:09 INR 0.95 (0.87-1.13) 09/02/21 09:09 APTT 30.6 Sec. (24.2-36.6) 09/02/21 09:09 D-Dimer 421.08 ng/mlDDU (0-234) H 09/02/21 09:06 Sodium 139 mmol/L (137-145) 09/02/21 09:09 Potassium 3.9 mmol/L (3.6-5.0) 09/02/21 09:09 Chloride 103.5 mmol/L (98-107) 09/02/21 09:09 Carbon Dioxide 21 mmol/L (22-30) L 09/02/21 09:09 Anion Gap 18 mmol/L 09/02/21 09:09 BUN 5 mg/dL (9-20) L 09/02/21 09:09 Creatinine 0.7 mg/dL (0.8-1.3) L 09/02/21 09:09 Estimated GFR > 60 ml/min 09/02/21 09:09 BUN/Creatinine Ratio 7 % 09/02/21 09:09 Glucose 75 mg/dL (75-100) 09/02/21 14:39 POC Glucose 82 mg/dL (70-105) 09/02/21 16:51 Lactic Acid 1.90 mmol/L (0.7-2.0) 09/02/21 14:02 Calcium 8.5 mg/dL (8.4-10.2) 09/02/21 09:09 Magnesium 1.70 mg/dL (1.7-2.3) 09/02/21 09:09 Ferritin 146.6 ng/mL (30.0-300.0) 09/02/21 14:39 Total Bilirubin 0.60 mg/dL (0.1-1.2) 09/02/21 09:09 Direct Bilirubin 0.2 mg/dL (0-0.2) 09/02/21 09:09 Indirect Bilirubin 0.4 mg/dL 09/02/21 09:09 AST 92 units/L (5-40) H 09/02/21 09:09 ALT 49 units/L (7-56) 09/02/21 09:09 Alkaline Phosphatase 61 units/L (35-129) 09/02/21 09:09 Lactate Dehydrogenase 375 units/L (91-180) H 09/02/21 14:39 Troponin T 0.015 ng/mL (0.00-0.029) 09/02/21 16:08 C-Reactive Protein 0.00 mg/dL (0.00-1.30) 09/02/21 14:39 NT-Pro-B Natriuret Pep 618.4 pg/mL (0-900) 09/02/21 09:09 Total Protein 7.2 g/dL (6.3-8.2) 09/02/21 09:09 Albumin 3.7 g/dL (3.9-5) L 09/02/21 09:09 Albumin/Globulin Ratio 1.1 % 09/02/21 09:09 Lipase 61 units/L (13-60) H 09/02/21 09:09 Salicylates < 0.3 mg/dL (2.8-20.0) L 09/02/21 09:09 Acetaminophen 15.2 ug/mL (10.0-30.0) 09/02/21 09:09 Plasma/Serum Alcohol 0.08 % (0-0.07) H 09/02/21 09:09 Coronavirus (PCR) Negative (Negative) 09/02/21 Unknown Microbiology: Microbiology 09/02/21 09:09 Peripheral/Venous Blood Culture - Preliminary Culture in Progress 09/02/21 09:09 Peripheral/Venous Blood Culture - Preliminary Culture in Progress - Imaging and Cardiology EKG: report reviewed (Sinus rhythm no acute ST-T wave changes) CT Scan - head: report reviewed Imaging and Cardiology: Chest x-ray No acute findings head CT No Cerebral hemorrhage or stroke no acute focal parenchymal lesions in the brain CT thoracic spine with contrast Multilevel degenerative changes involving thoracic spine without gross CT evidence of acute compression No significant bony or spinal stenosis MRI of the spine was ordered by ER physician No clue for epidural abscess no definitive paraspinal fluid collections or endplate erosive changes seen in the current study Lumbar spine CT No evidence of epidural abscess Cervical spine MRI Posterior cervical disc fusion at C6-C7 level with Levels Spondylotic changes with disc osteophyte complexes resulting in foraminal stenosis at C3-C4 C4 seen Shallow disc protrusion at T7 T1 place resulting in bilateral foraminal stenosis No intradural lesions seen in the MRIs thoracic spine MRI no epidural abscess seen Lumbar line MRI Degenerated and postoperative changes of the lumbar spine significant findings are seen at multiple levels Mild most marked appears to be at L4-L5 followed by L3-L4 and anterior epidural fluid collection and prominent basivertebral plexus Significant chronic changes at L3-L4 resulting in significant lumbar kyphosis and listhesis Assessment and Plan Advance Directives: Yes (Full code) VTE prophylaxis?: Chemical Plan of care discussed with patient/family: Yes - Patient Problems (1) Nerve root and plexus compressions in spondylosis Current Visit: Yes Status: Acute Plan to address problem: Neurosurgery was consulted No evidence of epidural abscess Conservative treatment Pain management Physical therapy and Occupational Therapy Patient may need subacute/acute rehab (2) Weakness of both lower extremities Current Visit: Yes Status: Acute Plan to address problem: Patient has severe weakness of both lower extremities Possibly secondary to lumbar stenosis MRI of C-spine T-spine and L-spine were done Shows extensive degenerative changes and spinal stenosis at L5-S1 Neurosurgery recommendation was for LSO brace No surgical intervention at this point Acute/subacute rehab (3) Elevated lactic acid level Current Visit: Yes Status: Acute Plan to address problem: Nonspecific We will discontinue the cefepime and vancomycin (4) Hypertension Current Visit: Yes Status: Chronic Qualifiers: Hypertension type: primary hypertension Qualified Code(s): I10 - Essential (primary) hypertension Plan to address problem: Continue antihypertensives and adjust medications (5) HIV (human immunodeficiency virus infection) Current Visit: Yes Status: Chronic Qualifiers: HIV symptom status: asymptomatic, with no history of HIV-related illness Qualified Code(s): Z21 - Asymptomatic human immunodeficiency virus [HIV] infection status Plan to address problem: To follow-up with ID as outpatient ID consult requested (6) Coronary artery disease Current Visit: Yes Status: Chronic Qualifiers: Coronary Disease-Associated Artery/Lesion type: [place] artery [place] vs. transplanted heart: [place] heart Plan to address problem: On aspirin 325 mg once a day (7) Cocaine dependence Current Visit: Yes Status: Chronic Qualifiers: Substance use status: uncomplicated Qualified Code(s): F14.20 - Cocaine dependence, uncomplicated Plan to address problem: Patient counseled about cocaine dependence CIWA protocol to be initiated if any withdrawal symptoms (8) DVT prophylaxis Current Visit: Yes Status: Acute Plan to address problem: On heparin and GI prophylaxis
[2021-09-02] MEDS ORDERED: ACETAMINOPHEN 325 MG TAB PO PRN (18:15)
[2021-09-02] MEDS ORDERED: METOCLOPRAMIDE 10 MG/2 ML INJ IV PRN (18:15)
[2021-09-02] MEDS ORDERED: ONDANSETRON 4 MG/2 ML INJ IV PRN (18:15)
[2021-09-02] MEDS ORDERED: SODIUM CHLORIDE 0.9% 1000 ML 1,000 ML IV SCH (18:15)
[2021-09-02] MEDS ORDERED: ALBUTEROL 2.5 MG/3 ML NEBU IH PRN (18:20)
[2021-09-02] MEDS ORDERED: VANCOMYCIN PHARMACY TO DOSE IV SCH (19:00)
[2021-09-02] MEDS: SPIRONOLACTONE 25 MG TAB PO SCH (20:09)
[2021-09-02] MEDS: VANCOMYCIN 1,250 MG in SODIUM CHLORIDE 0.9% 250ML 250 ML IV SCH (20:10)
[2021-09-02] MEDS: ASPIRIN EC 81 MG TAB PO SCH (20:10)
[2021-09-02] MEDS: oxyCODONE /ACETAMINOPHEN 5-325MG TAB PO PRN (20:20)
[2021-09-02] MEDS: CEFEPIME/NS 2 GM/100 ML 2 GM/100 ML BAG IV SCH (21:16)
[2021-09-02] MEDS: FAMOTIDINE 20 MG/2 ML INJ IV SCH (22:28)
[2021-09-02] MEDS: HEPARIN 5,000 UNIT/1 ML VIAL SUB-Q SCH (22:28)
[2021-09-02] MEDS: METOPROLOL TARTRATE 50 MG TAB PO SCH (22:29)
[2021-09-03 02:04] LABS: Bilirubin,Urine NEG (Negative); Blood,Urine NEG (Negative); Color,Urine Straw (Yellow); Mucus,Urine FEW /HPF; Protein,Urine <15 mg/dL mg/dL (Negative); RBC,Urine < 1.0 /HPF (0.0-6.0); Urobilinogen,Urine < 2.0 mg/dL (<2.0); WBC,Urine < 1.0 /HPF (0.0-6.0)
[2021-09-03 02:21] LABS: Amphetamine Screen,Urine PRESUMPTIVE NEGATIVE; Benzodiazepines Screen,Urine PRESUMPTIVE NEGATIVE; Cannabinoid Screen,Urine PRESUMPTIVE NEGATIVE; Cocaine Screen,Urine PRESUMPTIVE POSITIVE; Methadone Screen,Urine PRESUMPTIVE NEGATIVE; Opiate Screen,Urine PRESUMPTIVE NEGATIVE
[2021-09-03] MEDS: CEFEPIME/NS 2 GM/100 ML 2 GM/100 ML BAG IV SCH (03:24)
[2021-09-03 05:51] LABS: Hematocrit 42.8 % (35.5-45.6); Hemoglobin 14.2 gm/dl (11.8-15.2); Mean Corpuscular HGB Conc 33 % (32-34); Mean Corpuscular Volume 92 fl (84-94); Platelet Count 186 K/mm3 (140-440); Red Blood Count 4.65 M/mm3 (3.65-5.03)
[2021-09-03 05:59] LABS: Alanine Aminotransferase 46 units/L (7-56); Albumin 3.7 g/dL (3.9-5); Blood Urea Nitrogen 5 mg/dL (9-20); Calcium 8.8 mg/dL (8.4-10.2); Hemolysis Index 8
[2021-09-03 06:00] LABS: BUN/Creatinine Ratio 7
[2021-09-03] MEDS: HYDROmorphone 1 MG/1 ML INJ IV PRN (06:30)
[2021-09-03 06:38] LABS: Red Cell Distribution Width 20.3 % (13.2-15.2)
[2021-09-03] MEDS: VANCOMYCIN 1,250 MG in SODIUM CHLORIDE 0.9% 250ML 250 ML IV SCH (08:46)
[2021-09-03 09:16] LABS: Band Neutrophils # (Manual) 0.2 K/mm3; Total Cells Counted 100
[2021-09-03 09:17] LABS: Ovalocytes 1+; Platelet Estimate Consistent w Auto
[2021-09-03] MEDS ORDERED: FUROSEMIDE 20 MG TAB PO SCH (10:00)
[2021-09-03] MEDS ORDERED: LISINOPRIL 5 MG TAB PO SCH (10:00)
[2021-09-03] MEDS: oxyCODONE /ACETAMINOPHEN 5-325MG TAB PO PRN ×2 (10:00→17:20)
[2021-09-03] MEDS: FAMOTIDINE 20 MG/2 ML INJ IV SCH (11:27)
[2021-09-03] MEDS: HEPARIN 5,000 UNIT/1 ML VIAL SUB-Q SCH (11:27)
[2021-09-03] MEDS: SPIRONOLACTONE 25 MG TAB PO SCH (11:27)
[2021-09-03] MEDS: METOPROLOL TARTRATE 50 MG TAB PO SCH (11:27)
[2021-09-03] MEDS: ASPIRIN EC 81 MG TAB PO SCH (11:27)
--- NOTE | 2021-09-03 17:31 | Consultation ---
History of Present Illness Consult date: 09/03/21 Requesting physician: LEEANNE BERTRAND Chief complaint: leg weakness History of present illness: Mr. Vidal is a 55 y/o M w/ untreated HIV, presented to [facility] on yesterday with complaints of worsening back pain and bilateral leg weakness. These symptoms have progressed over the past few weeks. He has a history of chronic back pain s/p multilevel lumbar laminectomy at [facility] several years go. He reports worsening leg pain and inability to stand and walk. MRI was performed, which revealed post op changes from multilevel decompression with iatrogenic L4-5 anterolisthesis. There is anterior epidural contrast enhancement consistent with scar/granulation tissue. There is no critical compromise of the neural s tructures. Medications and Allergies Allergies Allergy/AdvReac Type Severity Reaction Status Date / Time No Known Allergies Allergy Verified 08/08/21 20:31 Home Medications Medication Instructions Recorded Confirmed Last Taken Type Albuterol Mdi (or & Nicu Only) 2 puff IH QID PRN #8.5 gram 08/08/21 09/02/21 Un known Rx [ProAir HFA Inhaler] Furosemide [Lasix] 20 mg PO QDAY #10 tablet 08/08/21 09/02/21 Unknown Rx Aspirin EC [Halfprin EC] 81 mg PO QDAY 30 Days #30 tablet 08/13/21 09/03/21 09/01/21 Rx AtorvaSTATin [Lipitor] 40 mg PO QHS 30 Days #30 tablet 08/13/21 09/02/21 Unknown Rx Metoprolol [Lopressor TAB] 50 mg PO BID 60 Days #30 tablet 08/13/21 09/02/21 Unknown Rx Spironolactone [Aldactone] 25 mg PO QDAY 30 Days #30 tablet 08/13/21 09/02/21 Unknown Rx Gabapentin 1 - 2 cap PO DAILY 09/03/21 09/03/21 Unknown History HYDROcodone/APAP 10-325 [[place] 2 tab PO QDAY 09/03/21 09/03/21 Unknown History ] Hydrocodone Bit/Homatrop Me-Br 10 ml PO BID PRN 09/03/21 09/03/21 Unknown History [Hycodan 5 mg-1.5 mg/5 ml Soln] Hydrocortisone 2.5% [Hytone 2.5% 1 unit TP DAILY 09/03/21 09/03/21 Unknown History CREAM] Lidocaine [Lidoderm] 1 each TP DAILY 09/03/21 09/03/21 Unknown History Menthol [Biofreeze] 1 unit TP BID 09/03/21 09/03/21 Unknown History Oxycodone HCl/Acetaminophen 2 tab PO Q6H PRN 09/03/21 09/03/21 09/02/21 History [Percocet 10/325 mg] QUEtiapine [SEROquel] 200 mg PO QHS 09/03/21 09/03/21 Unknown History diphenhydrAMINE [Benadryl CAP] 50 mg PO BID 09/03/21 09/03/21 Unknown History lisinopriL [Lisinopril] 10 mg PO QDAY 09/03/21 09/03/21 Unknown History Active Meds: Active Medications Acetaminophen (Acetaminophen 325 Mg Tab) 650 mg PO Q4H PRN PRN Reason: Pain MILD(1-3)/Fever >100.5/CHOPRA Albuterol (Albuterol 2.5 Mg/3 Ml Nebu) 2.5 mg IH QID PRN PRN Reason: Shortness Of Breath Aspirin (Aspirin Ec 81 Mg Tab) 81 mg PO QDAY [facility] Last Admin: 09/03/21 11:27 Dose: 81 mg Documented by: Atorvastatin Calcium (Atorvastatin 40 Mg Tab) 40 mg PO QHS [facility] Last Admin: 09/02/21 22:29 Dose: 40 mg Documented by: Famotidine (Famotidine 20 Mg/2 Ml Inj) 20 mg IV BID [facility] Last Admin: 09/03/21 11:27 Dose: 20 mg Documented by: Furosemide (Furosemide 20 Mg Tab) 20 mg PO QDAY [facility] Last Admin: 09/03/21 11:27 Dose: 20 mg Documented by: Heparin Sodium (Porcine) (Heparin 5,000 Unit/1 Ml Vial) 5,000 unit SUB-Q Q12HR [facility] Last Admin: 09/03/21 11:27 Dose: 5,000 unit Documented by: Hydromorphone HCl (Hydromorphone 1 Mg/1 Ml Inj) 0.5 mg IV Q3H PRN PRN Reason: Pain , Severe (7-10) Last Admin: 09/03/21 06:30 Dose: 0.5 mg Documented by: Sodium Chloride (Nacl 0.9% 1000 Ml) 1,000 mls @ 75 mls/hr IV DIRECT [facility] Vancomycin HCl 1,250 mg/ (Sodium Chloride) 275 mls @ 166.667 mls/hr IV Q12H [facility] Last Infusion: 09/03/21 17:20 Dose: Infused Documented by: Lisinopril (Lisinopril 5 Mg Tab) 5 mg PO QDAY [facility] Last Admin: 09/03/21 11:28 Dose: 5 mg Documented by: Metoclopramide HCl (Metoclopramide 10 Mg/2 Ml Inj) 10 mg IV Q6H PRN PRN Reason: Nausea And Vomiting Metoprolol Tartrate (Metoprolol Tartrate 50 Mg Tab) 50 mg PO BID [facility] Last Admin: 09/03/21 11:27 Dose: 50 mg Documented by: Ondansetron HCl (Ondansetron 4 Mg/2 Ml Inj) 4 mg IV Q8H PRN PRN Reason: Nausea And Vomiting Oxycodone/Acetaminophen (Oxycodone /Acetaminophen 5-325mg Tab) 2 tab PO Q6H PRN PRN Reason: Pain, Moderate (4-6) Last Admin: 09/03/21 17:20 Dose: 2 tab Documented by: Sodium Chloride (Sodium Chloride 0.9% 10 Ml Flush Syringe) 10 ml IV BID [facility] Last Admin: 09/03/21 11:27 Dose: 10 ml Documented by: Sodium Chloride (Sodium Chloride 0.9% 10 Ml Flush Syringe) 10 ml IV PRN PRN PRN Reason: LINE FLUSH Spironolactone (Spironolactone 25 Mg Tab) 25 mg PO QDAY [facility] Last Admin: 09/03/21 11:27 Dose: 25 mg Documented by: Review of Systems All systems: negative (what is specified in HPI) Physical Examination - Vital Signs Vital Signs: Vital Signs Temp Pulse Resp BP Pulse Ox 98 F 110 H 16 140/83 97 09/02/21 08:02 09/02/21 08:02 09/02/21 08:02 09/02/21 08:02 09/02/21 08:02 - Physical Exam Narrative exam: seen and examined NC/AT RRR breathing non-labored abdomen soft no cyanosis or clubbing A&Ox3 CNII-XII intact b/l HF 4-/5, KF/KE 4/5, DF/PF 5/5 SLR (-) b/l sensation intact reflexes +2 Results - Laboratory Findings CBC and BMP: 09/03/21 04:32 09/03/21 04:32 Abnormal Lab Findings: Abnormal Labs 09/02/21 09/02/21 09/02/21 09:06 09:09 09:09 WBC 3.9 L RDW 19.8 H [place] % (Auto) 15.4 H Eos % (Auto) 8.0 H Lymph # (Auto) 0.8 L Seg Neuts % (Manual) Lymphocytes % (Manual) Eosinophils % (Manual) Lymphocytes # (Manual) D-Dimer 421.08 H Carbon Dioxide BUN Creatinine Glucose Lactic Acid 3.10 H* Total Bilirubin AST Lactate Dehydrogenase Albumin Lipase Urine pH Salicylates Plasma/Serum Alcohol 09/02/21 09/02/21 09/02/21 09:09 09:09 09:09 WBC RDW [place] % (Auto) Eos % (Auto) Lymph # (Auto) Seg Neuts % (Manual) Lymphocytes % (Manual) Eosinophils % (Manual) Lymphocytes # (Manual) D-Dimer Carbon Dioxide 21 L BUN 5 L Creatinine 0.7 L Glucose 63 L Lactic Acid Total Bilirubin AST 92 H Lactate Dehydrogenase Albumin 3.7 L Lipase 61 H Urine pH Salicylates < 0.3 L Plasma/Serum Alcohol 0.08 H 09/02/21 09/03/21 09/03/21 14:39 01:45 04:32 WBC RDW 20.3 H [place] % (Auto) Eos % (Auto) Lymph # (Auto) Seg Neuts % (Manual) 78.0 H Lymphocytes % (Manual) 10.0 L Eosinophils % (Manual) 5.0 H Lymphocytes # (Manual) 0.6 L D-Dimer Carbon Dioxide BUN Creatinine Glucose Lactic Acid Total Bilirubin AST Lactate Dehydrogenase 375 H Albumin Lipase Urine pH 8.0 H Salicylates Plasma/Serum Alcohol 09/03/21 04:32 WBC RDW [place] % (Auto) Eos % (Auto) Lymph # (Auto) Seg Neuts % (Manual) Lymphocytes % (Manual) Eosinophils % (Manual) Lymphocytes # (Manual) D-Dimer Carbon Dioxide BUN 5 L Creatinine 0.7 L Glucose Lactic Acid Total Bilirubin 1.60 H AST 76 H Lactate Dehydrogenase Albumin 3.7 L Lipase Urine pH Salicylates Plasma/Serum Alcohol Assessment and Plan 55 y/o M w/ multiple medical maladies, worsening back pain due to iatrogenic anterolisthesis, lumbar stenosis w/ prominent epidural scar formation -no surgical intervention -recommend LSO brace -PT consultation -will arrange for outpatient follow up -please notify if questions
--- NOTE | 2021-09-03 17:42 | Discharge Summary ---
Providers - Providers Date of Admission: 09/02/21 18:15 Date of discharge: 09/03/21 Attending physician: JOHNNY ROSALES 09/02/21 12:42 Consult to Physician [CONS] Stat Comment: Consulting Provider: CAROLE MURRAY II Physician Instructions: Reason For Exam: possible epidural abscess/acute cord syndrome 09/03/21 10:19 Physical Therapy Evaluation and Treat [CONS] Routine Comment: Reason For Exam: Debility Primary care physician: RESOURCING ADVISOR Hospitalization Condition: Serious Hospital course: Mr. Vidal is a 55 y/o M w/ untreated HIV, presented to [facility] on yesterday with complaints of worsening back pain and bilateral leg weakness. These symptoms have progressed over the past few weeks. He has a history of chronic back pain s/p multilevel lumbar laminectomy at [facility] several years ago. MRI was performed, which revealed post op changes from multilevel decompression with iatrogenic L4-5 anterolisthesis. There is anterior epidural contrast enhancement consistent with scar/granulation tissue. There is no critical compromise of the neural structures. NS was consulted and recommended no surgical intervention and LSO brace. PT evaluated the patient and recommended HH. Outpt f/u with NS arranged by Dr Roe and patient was then discharged home in stable condition. Disposition: 01 HOME / SELF CARE / HOMELESS Final Discharge Diagnosis (Prints w/discharge instructions): --lumbar stenosis w/ prominent epidural scar formation. --Weakness of both lower extremities. --Elevated lactic acid level with dehydration. --Hypertension. --HIV. --Coronary artery disease. --Cocaine dependence. --Noncompliance Time spent for discharge: 34 minutes Core Measure Documentation - Palliative Care Palliative Care/ Comfort Measures: Not Applicable - Core Measures Any of the following diagnoses?: none Exam - Constitutional Vitals: Temp Pulse Resp BP Pulse Ox 98 F 83 15 139/100 97 09/02/21 08:02 09/03/21 06:15 09/03/21 06:15 09/03/21 06:15 09/03/21 06:15 General appearance: Present: no acute distress - EENT Eyes: Present: PERRL ENT: hearing intact, clear oral mucosa - Neck Neck: Present: supple, normal ROM - Respiratory Respiratory effort: normal Respiratory: bilateral: CTA - Cardiovascular Heart Sounds: Present: S1 & S2. Absent: rub, click - Extremities Extremities: pulses symmetrical, No edema Peripheral Pulses: within normal limits - Abdominal General gastrointestinal: Present: soft, non-tender, non-distended, normal bowel sounds - Integumentary Integumentary: Present: clear, warm, dry - Musculoskeletal Musculoskeletal: gait normal, strength equal bilaterally - Psychiatric Psychiatric: appropriate mood/affect, intact judgment & insight - Neurologic Neurologic: CNII-XII intact, moves all extremities Plan Activity: fall precautions Weight Bearing Status: Non-Weight Bearing Diet: low fat, low salt Special Instructions: home health RN Follow up with: PRIMARY CAREMD [Primary Care Provider] - 3-5 Days CAROLE MURRAY II, MD [Staff Physician] - 7 Days
[2021-09-04] MEDS: HEPARIN 5,000 UNIT/1 ML VIAL SUB-Q SCH (00:06)
[2021-09-04] MEDS: HYDROmorphone 1 MG/1 ML INJ IV PRN (00:06)
[2021-09-04] MEDS: VANCOMYCIN 1,250 MG in SODIUM CHLORIDE 0.9% 250ML 250 ML IV SCH ×2 (00:06→09:05)
[2021-09-04] MEDS: METOPROLOL TARTRATE 50 MG TAB PO SCH (00:24)
[2021-09-04] MEDS: FAMOTIDINE 20 MG/2 ML INJ IV SCH (00:24)
[2021-09-04] MEDS: oxyCODONE /ACETAMINOPHEN 5-325MG TAB PO PRN (05:30)
[2021-09-04 08:20] VITALS: BP 110/77
== END 2021-09-04 09:20 | disposition home or self-care (01) | DRG 552 ==
LOC: ED 07:56 → 4A 18:15
PROVIDERS: ADMIT Internal Medicine; ATTEND Internal Medicine
DX: M47.26 Other spondylosis with radiculopathy, lumbar region (principal); R29.898 Other symptoms and signs involving the musculoskeletal system; M48.061 Spinal stenosis, lumbar region without neurogenic claudication; I25.10 Atherosclerotic heart disease of native coronary artery without angina pectoris; I50.9 Heart failure, unspecified; M19.90 Unspecified osteoarthritis, unspecified site; N18.9 Chronic kidney disease, unspecified; I13.0 Hypertensive heart and chronic kidney disease with heart failure and stage 1 through stage 4 chronic kidney disease, or unspecified chronic kidney disease; R53.1 Weakness; F14.20 Cocaine dependence, uncomplicated; E86.0 Dehydration; Z21 Asymptomatic human immunodeficiency virus [HIV] infection status; Z20.822 Contact with and (suspected) exposure to COVID-19; Z91.19 Patient's noncompliance with other medical treatment and regimen
CPT/HCPCS: 36415; 70450; 70491; 71045; 72129; 72132; 72156; 72157; 72158; 80048; 80053; 80076; 80307; 80320; 81001; 82140; 82550; 82553; 82728; 82947; 82962; 83615; 83690; 83735; 83880; 84145; 84484; 85007; 85025; 85379; 85610; 85652; 85730; 86140; 87040; 93005; G0378; A9575; G0480; J0692; J1170; J1644; J1650; J2060; J2405; J3010; J3370; J3480; J3486; J7040; J7050; Q9967; U0003

== ENCOUNTER 2021-09-07 03:14 | Inpatient (IN) | payer MEDICAID ==
[2021-09-07] MEDS ORDERED: ONDANSETRON 4 MG/2 ML INJ IV ONE (04:54)
[2021-09-07] MEDS ORDERED: NITROGLYCERIN 2% OINT 1 GM TP ONE (04:54)
[2021-09-07] MEDS ORDERED: fentaNYL 100 MCG/2 ML INJ IV ONE (04:54)
--- NOTE | 2021-09-07 05:00 | Emergency Department Report ---
HPI - General Chief Complaint: Chest Pain Time Seen by Provider: 09/07/21 04:52 - HPI HPI: Room 22 The patient is a 55-year-old male present with a chief complaint of chest pain. Patient states his symptoms began this morning at 02: 00 while riding in a car. Patient describes the pain is a constant sharp throbbing pain in the left chest radiating to the right chest. Patient admits to shortness of breath, nausea/vomiting and diaphoresis with this pain. Patient also states he has had a cough has been productive of yellow sputum for approximately 1 week. Patient currently gets his chest pain score of 10/10. Patient states he has had a IN in the past and his last cardiac catheterization occurred in 2010 ED Past Medical Hx - Past Medical History Previous Medical History?: Yes Hx Hypertension: Yes Hx Heart Attack/AMI: Yes (x 2) Hx Congestive Heart Failure: Yes Hx Pulmonary Embolism: Yes Hx Liver Disease: Yes (hep B and hep C) Hx Renal Disease: Yes Hx Arthritis: Yes (osteoarthritis) Hx Psychiatric Treatment: Yes Hx COPD: Yes Hx HIV: Yes (No meds, unknown CD4 count) Additional medical history: sleep apnea - Surgical History Past Surgical History?: Yes Hx Coronary Stent: Yes (x 2) Additional Surgical History: neck surgery, back surgery - Family History Family history: no significant - Social History Smoking Status: Current Every Day Smoker (1/3 pack/day) Substance Use Type: Alcohol (Daily), Cocaine (Last used yesterday) - Medications Home Medications: Home Medications Medication Instructions Recorded Confirmed Last Taken Type Albuterol Mdi (or & Nicu Only) 2 puff IH QID PRN #8.5 gram 08/08/21 09/02/21 Unknown Rx [ProAir HFA Inhaler] Furosemide [Lasix TAB] 20 mg PO QDAY #10 tablet 08/08/21 09/02/21 Unknown Rx Aspirin EC [Halfprin EC] 81 mg PO QDAY 30 Days #30 tablet 08/13/21 09/03/21 09/01/21 Rx AtorvaSTATin [Lipitor] 40 mg PO QHS 30 Days #30 tablet 08/13/21 09/02/21 Unknown Rx Metoprolol [Lopressor TAB] 50 mg PO BID 60 Days #30 tablet 08/13/21 09/02/21 Unknown Rx Spironolactone [Aldactone] 25 mg PO QDAY 30 Days #30 tablet 08/13/21 09/02/21 Unknown Rx Gabapentin 1 - 2 cap PO DAILY 09/03/21 09/03/21 Unknown History HYDROcodone/APAP 10-325 [[place] 2 tab PO QDAY 09/03/21 09/03/21 Unknown History 10-325 mg TAB] Hydrocodone Bit/Homatrop Me-Br 10 ml PO BID PRN 09/03/21 09/03/21 Unknown History [Hycodan 5 mg-1.5 mg/5 ml Soln] Hydrocortisone 2.5% [Hytone 2.5% 1 unit TP DAILY 09/03/21 09/03/21 Unknown H istory CREAM] Lidocaine [Lidoderm] 1 each TP DAILY 09/03/21 09/03/21 Unknown History Menthol [Biofreeze] 1 unit TP BID 09/03/21 09/03/21 Unknown History Oxycodone HCl/Acetaminophen 2 tab PO Q6H PRN 09/03/21 09/03/21 09/02/21 History [Percocet 10/325 mg] QUEtiapine [SEROquel] 200 mg PO QHS 09/03/21 09/03/21 Unknown History diphenhydrAMINE [Benadryl CAP] 50 mg PO BID 09/03/21 09/03/21 Unknown History lisinopriL [Lisinopril] 10 mg PO QDAY 09/03/21 09/03/21 Unknown History oxyCODONE /ACETAMINOPHEN [Percocet 1 tab PO Q6HR PRN #15 tablet 09/04/21 Unknown Rx 5/325] ED Review of Systems ROS: Stated complaint: CHEST PAIN Other details as noted in HPI Constitutional: diaphoresis Eyes: denies: eye pain ENT: denies: throat pain Respiratory: cough, shortness of breath Cardiovascular: chest pain Endocrine: no symptoms reported Gastrointestinal: nausea, vomiting Genitourinary: denies: dysuria Neurological: denies: headache Physical Exam - Physical Exam Vital Signs: Vital Signs 09/07/21 04:22 Temperature 98.4 F Pulse Rate 99 H Respiratory 20 Rate Blood Pressure 129/97 [Right] O2 Sat by Pulse 99 Oximetry Physical Exam: GENERAL: The patient is well-developed well-nourished male lying on stretcher not appearing to be in acute distress. [] HEENT: Normocephalic. Atraumatic. Extraocular motions are intact. Patient has moist mucous membranes. NECK: Supple. Trachea midline CHEST/LUNGS: Clear to auscultation. There is no respiratory distress noted. HEART/CARDIOVASCULAR: Regular. There is no tachycardia. There is no gallop rub or murmur. ABDOMEN: Abdomen is soft, nontender. Patient has normal bowel sounds. There is no abdominal distention. SKIN: There is no rash. There is no edema. There is no diaphoresis. NEURO: The patient is awake, alert, and oriented. The patient is cooperative. The patient has no focal neurologic deficits. The patient has normal speech. GCS 15 MUSCULOSKELETAL: There is no evidence of acute injury. ED Course Vital Signs 09/07/21 04:22 Temperature 98.4 F Pulse Rate 99 H Respiratory 20 Rate Blood Pressure 129/97 [Right] O2 Sat by Pulse 99 Oximetry - Reevaluation(s) Reevaluation #1: 09/07/21 05:30 Nursing informed me that the patient admitted to suicidal ideation ED Medical Decision Making - Lab Data Result diagrams: 09/07/21 04:58 09/07/21 04:58 Laboratory Tests 09/07/21 09/07/21 09/07/21 04:58 04:58 04:58 WBC 4.6 RBC 4.04 Hgb 12.5 Hct 37.3 MCV 92 MCH 31 MCHC 34 RDW 20.0 H Plt Count 156 Lymph % (Auto) 36.2 H [place] % (Auto) 15.6 H Eos % (Auto) 3.9 Baso % (Auto) 0.9 Lymph # (Auto) 1.7 [place] # (Auto) 0.7 Eos # (Auto) 0.2 Baso # (Auto) 0.0 Seg Neutrophils % 43.4 Seg Neutrophils # 2.0 PT 13.2 INR 0.94 Sodium 136 L Potassium 4.4 Chloride 100.3 Carbon Dioxide 21 L Anion Gap 19 BUN 11 Creatinine 0.8 Estimated GFR > 60 BUN/Creatinine Ratio 14 Glucose 68 L Calcium 8.9 Total Creatine Kinase 1574 H CK-MB (CK-2) 17.1 H CK-MB (CK-2) Rel Index 1.0 Troponin T 0.024 - EKG Data -: EKG Interpreted by Me EKG shows normal: sinus rhythm, axis Rate: tachycardia (102 bpm) - EKG Data When compared to previous EKG there are: previous EKG unavailable Interpretation: LVH - Radiology Data Radiology results: image reviewed (Chest x-ray) interpreted by me: Chest x-ray-no definite focal infiltrates, no pneumothorax - Differential Diagnosis ACS, Prinzmetal's, pericarditis, GERD Critical care attestation.: If time is entered above; I have spent that time in minutes in the direct care of this critically ill patient, excluding procedure time. ED Disposition Clinical Impression: Chest pain, Cocaine abuse, Suicidal ideation, Rhabdomyolysis Disposition: ADMITTED INPATIENT Is pt being admited?: Yes Does the pt Need Aspirin: Yes Condition: Fair Instructions: Nonspecific Chest Pain, Adult Time of Disposition: 05:59 (Hospitalist called (Dr Chatterjee)) Heart Score - HEART Score History: Moderately suspicious EKG: Non-specific Age: 45-65 Risk factors: 1-2 risk factors Troponin: < normal limit HEART Score: 4 - EKG Read Time Time EKG Completed: 04:48 EKG Read Time: 04:59
[2021-09-07 05:21] LABS: Basophils % (Auto) 0.9 % (0.0-1.8); Eosinophils # (Auto) 0.2 K/mm3 (0.0-0.4); Eosinophils % (Auto) 3.9 % (0.0-4.3); Hematocrit 37.3 % (35.5-45.6); Hemoglobin 12.5 gm/dl (11.8-15.2); Lymphocytes # (Auto) 1.7 K/mm3 (1.2-5.4); Lymphocytes % (Auto) 36.2 % (13.4-35.0); Mean Corpuscular HGB Conc 34 % (32-34); Mean Corpuscular Volume 92 fl (84-94); Monocytes # (Auto) 0.7 K/mm3 (0.0-0.8); Monocytes % (Auto) 15.6 % (0.0-7.3); Platelet Count 156 K/mm3 (140-440); Red Blood Count 4.04 M/mm3 (3.65-5.03)
[2021-09-07 05:27] LABS: INR 0.94 (0.87-1.13)
--- NOTE | 2021-09-07 05:32 | XRay Report ---
CHEST 1 VIEW 09/07/2021 5:10 AM INDICATION / CLINICAL INFORMATION: chest pain. COMPARISON: 09/02/2021 FINDINGS: SUPPORT DEVICES: None. HEART / MEDIASTINUM: No significant abnormality. LUNGS / PLEURA: No significant pulmonary or pleural abnormality. No pneumothorax. ADDITIONAL FINDINGS: No significant additional findings. IMPRESSION: 1. No acute findings. Signer Name: Torin Tineo MD Signed: 09/07/2021 5:28 AM Workstation Name: [id number]
[2021-09-07 05:38] LABS: Creatine Kinase MB 17.1 ng/mL (0.0-4.0)
[2021-09-07 05:39] LABS: BUN/Creatinine Ratio 14; Blood Urea Nitrogen 11 mg/dL (9-20); Calcium 8.9 mg/dL (8.4-10.2); Hemolysis Index 17
[2021-09-07] MEDS ORDERED: fentaNYL 100 MCG/2 ML INJ IV SCH (07:00)
--- NOTE | 2021-09-07 07:58 | History and Physical Report ---
History of Present Illness Date of examination: 09/07/21 Date of admission: 09/07/21 06:03 Chief complaint: Chest pain History of present illness: 55-year-old male with significant past medical history of hypertension, OK x2, CHF, PE, hepatitis B, hepatitis C, chronic kidney disease, LAURIE, COPD, cocaine abuse and HIV who presents with complaint of chest pain. Patient reported chest pain occurred approximately 2 AM while riding in the car this morning. Patient describes the pain is a constant sharp throbbing pain in the left chest radiating to the right chest. Patient also reported associated shortness of breath, nausea, vomiting and diaphoresis. Patient reports a previous history of OK with last ischemic evaluation via cardiac catheterization in 2010. Past History Past Medical History: CAD (History of coronary stent x2), COPD, heart failure, hypertension, pulmonary embolism, other (Osteoarthritis, hepatitis B, hepatitis C, HIV) Past Surgical History: Other (Coronary stent, back surgery, neck surgery) Social history: smoking (Half a pack per day), other (EtOH use, cocaine abuse) Family history: no significant family history Medications and Allergies Allergies Allergy/AdvReac Type Severity Reaction Status Date / Time No Known Allergies Allergy Verified 08/08/21 20:31 Home Medications Medication Instructions Recorded Confirmed Last Taken Type Albuterol Mdi (or & Nicu Only) 2 puff IH QID PRN #8.5 gram 08/08/21 09/07/21 Unknown Rx [ProAir HFA Inhaler] Furosemide [Lasix TAB] 20 mg PO QDAY #10 tablet 08/08/21 09/07/21 Unknown Rx Aspirin EC [Halfprin EC] 81 mg PO QDAY 30 Days #30 tablet 08/13/21 09/07/21 09/01/21 Rx AtorvaSTATin [Lipitor] 40 mg PO QHS 30 Days #30 tablet 08/13/21 09/07/21 Unknown Rx Metoprolol [Lopressor TAB] 50 mg PO BID 60 Days #30 tablet 08/13/21 09/07/21 Unknown Rx Spironolactone [Aldactone] 25 mg PO QDAY 30 Days #30 tablet 08/13/21 09/07/21 Unknown Rx Gabapentin 1 - 2 cap PO DAILY 09/03/21 09/07/21 Unknown History HYDROcodone/APAP 10-325 [[place] 2 tab PO QDAY 09/03/21 09/07/21 Unknown History 10-325 mg TAB] Hydrocodone Bit/Homatrop Me-Br 10 ml PO BID PRN 09/03/21 09/07/21 Unknown His tory [Hycodan 5 mg-1.5 mg/5 ml Soln] Hydrocortisone 2.5% [Hytone 2.5% 1 unit TP DAILY 09/03/21 09/07/21 Unknown History CREAM] Lidocaine [Lidoderm] 1 each TP DAILY 09/03/21 09/07/21 Unknown History Menthol [Biofreeze] 1 unit TP BID 09/03/21 09/07/21 Unknown History Oxycodone HCl/Acetaminophen 2 tab PO Q6H PRN 09/03/21 09/07/21 09/02/21 History [Percocet 10/325 mg] QUEtiapine [SEROquel] 200 mg PO QHS 09/03/21 09/07/21 Unknown History diphenhydrAMINE [Benadryl CAP] 50 mg PO BID 09/03/21 09/07/21 Unknown History lisinopriL [Lisinopril] 10 mg PO QDAY 09/03/21 09/07/21 Unknown History oxyCODONE /ACETAMINOPHEN [Percocet 1 tab PO Q6HR PRN #15 tablet 09/04/21 Unknown Rx 5/325] Active Meds: Active Medications Fentanyl (Fentanyl 100 Mcg/2 Ml Inj) 50 mcg IV ONCE@0700 MERRILL Stop: 09/07/21 11:00 Last Admin: 09/07/21 06:34 Dose: 50 mcg Documented by: Review of Systems All systems: negative Exam - Constitutional Vitals: Temp Pulse Resp BP Pulse Ox 98.4 F 104 H 20 139/100 99 09/07/21 04:22 09/07/21 05:19 09/07/21 04:55 09/07/21 05:19 09/07/21 04:55 General appearance: Present: no acute distress, well-nourished - EENT Eyes: Present: PERRL ENT: hearing intact, clear oral mucosa - Neck Neck: Present: supple, normal ROM - Respiratory Respiratory effort: normal Respiratory: bilateral: CTA - Cardiovascular Heart Sounds: Present: S1 & S2. Absent: rub, click - Extremities Extremities: pulses symmetrical, No edema Peripheral Pulses: within normal limits - Abdominal General gastrointestinal: Present: soft, non-tender, non-distended, normal bowel sounds Male genitourinary: Present: normal - Integumentary Integumentary: Present: clear, warm, dry - Musculoskeletal Musculoskeletal: gait normal, strength equal bilaterally - Psychiatric Psychiatric: appropriate mood/affect, intact judgment & insight - Neurologic Neurologic: CNII-XII intact, moves all extremities HEART Score - HEART Score EKG: Non-specific Age: 45-65 Risk factors: 1-2 risk factors Troponin: Troponin T 0.024 ng/mL (0.00-0.029) 09/07/21 04:58 Troponin: < normal limit Results - Labs CBC & Chem 7: 09/07/21 04:58 09/07/21 04:58 Labs: Laboratory Last Values WBC 4.6 K/mm3 (4.5-11.0) 09/07/21 04:58 RBC 4.04 M/mm3 (3.65-5.03) 09/07/21 04:58 Hgb 12.5 gm/dl (11.8-15.2) 09/07/21 04:58 Hct 37.3 % (35.5-45.6) 09/07/21 04:58 MCV 92 fl (84-94) 09/07/21 04:58 MCH 31 pg (28-32) 09/07/21 04:58 MCHC 34 % (32-34) 09/07/21 04:58 RDW 20.0 % (13.2-15.2) H 09/07/21 04:58 Plt Count 156 K/mm3 (140-440) 09/07/21 04:58 Lymph % (Auto) 36.2 % (13.4-35.0) H 09/07/21 04:58 [place] % (Auto) 15.6 % (0.0-7.3) H 09/07/21 04:58 Eos % (Auto) 3.9 % (0.0-4.3) 09/07/21 04:58 Baso % (Auto) 0.9 % (0.0-1.8) 09/07/21 04:58 Lymph # (Auto) 1.7 K/mm3 (1.2-5.4) 09/07/21 04:58 [place] # (Auto) 0.7 K/mm3 (0.0-0.8) 09/07/21 04:58 Eos # (Auto) 0.2 K/mm3 (0.0-0.4) 09/07/21 04:58 Baso # (Auto) 0.0 K/mm3 (0.0-0.1) 09/07/21 04:58 Seg Neutrophils % 43.4 % (40.0-70.0) 09/07/21 04:58 Seg Neutrophils # 2.0 K/mm3 (1.8-7.7) 09/07/21 04:58 PT 13.2 Sec. (12.2-14.9) 09/07/21 04:58 INR 0.94 (0.87-1.13) 09/07/21 04:58 Sodium 136 mmol/L (137-145) L 09/07/21 04:58 Potassium 4.4 mmol/L (3.6-5.0) 09/07/21 04:58 Chloride 100.3 mmol/L (98-107) 09/07/21 04:58 Carbon Dioxide 21 mmol/L (22-30) L 09/07/21 04:58 Anion Gap 19 mmol/L 09/07/21 04:58 BUN 11 mg/dL (9-20) 09/07/21 04:58 Creatinine 0.8 mg/dL (0.8-1.3) 09/07/21 04:58 Estimated GFR > 60 ml/min 09/07/21 04:58 BUN/Creatinine Ratio 14 % 09/07/21 04:58 Glucose 68 mg/dL (75-100) L 09/07/21 04:58 Calcium 8.9 mg/dL (8.4-10.2) 09/07/21 04:58 Total Creatine Kinase 1574 units/L (55-170) H 09/07/21 04:58 CK-MB (CK-2) 17.1 ng/mL (0.0-4.0) H 09/07/21 04:58 CK-MB (CK-2) Rel Index 1.0 (0-4) 09/07/21 04:58 Troponin T 0.024 ng/mL (0.00-0.029) 09/07/21 04:58 Assessment and Plan Assessment and plan: Acute coronary syndrome Suicidal Ideation Coronary artery disease. History of coronary stent x2 Chronic systolic heart failure. Compensated. Cocaine abuse. Rhabdomyolysis Hypertension Congestive heart failure History of pulmonary embolism Hepatitis B/hepatitis C History of COPD. History of HIV. LAURIE/OHS. Osteoarthritis 09/07/2021. The patient will be admitted and placed on the chest pain protocol. Etiology is likely secondary to vasospasm from cocaine abuse. Patient has initial troponin that is negative. We will continue to trend cardiac isoenzymes. Cardiology consultation. IV fluid for the mild rhabdomyolysis. Recheck BMP/CPK in a.m. Patient with echocardiogram July of this year which revealed LVEF 20-25% with mild to moderate concentric left ventricular hypertrophy. The patient also reportedly had Lexiscan stress test around the same time which revealed no ischemic defects. We will defer to cardiology with regards to ischemic evaluation. Await psych eval for suicidal ideation
[2021-09-07] MEDS ORDERED: MORPHINE 4 MG/1 ML INJ IV PRN (08:08)
[2021-09-07] MEDS ORDERED: ACETAMINOPHEN 325 MG TAB PO PRN (08:30)
[2021-09-07] MEDS ORDERED: ONDANSETRON 4 MG/2 ML INJ IV PRN (08:30)
[2021-09-07] MEDS ORDERED: MORPHINE 2 MG/1 ML INJ IV PRN (09:00)
--- NOTE | 2021-09-07 10:46 | Electrocardiograph Report ---
[facility] Test Date: 2021-09-07 Test Time: 04:48:23 Pat Name: MATHEW LEMUS Department: Room: [place] [address] Gender: M Community Program Assistant: RICKY : 1965 Requested By: MAXIMUS MULLINS Order Number: [id number] Reading MD: Curt Ricci Measurements Intervals [place] Rate: 102 P: 73 DC: 154 QRS: 39 QRSD: 85 T: 74 QT: 378 QTc: 493 Interpretive Statements Sinus tachycardia Left atrial enlargement Probable left ventricular hypertrophy Anterior Q waves, possibly due to LVH [id number] Compared to ECG 08/10/2021 11:30:48 Atrial abnormality now present Left ventricular hypertrophy now present Sinus rhythm no longer present Left-axis deviation no longer present T-wave abnormality no longer present Electronically Signed On 09-07-2021 10:45:46 EDT by Curt Ricci
[2021-09-07] MEDS: HYDROcodone/ACETAMINOPHEN 5-325 MG TAB PO PRN ×2 (11:30→23:32)
[2021-09-07] MEDS: ASPIRIN EC 81 MG TAB PO SCH (11:35)
[2021-09-07] MEDS: GABAPENTIN 400 MG CAP PO SCH (11:35)
[2021-09-07] MEDS: SPIRONOLACTONE 25 MG TAB PO SCH (11:35)
[2021-09-07] MEDS: ENOXAPARIN 40 MG/0.4 ML INJ SUB-Q SCH (11:35)
[2021-09-07] MEDS: FUROSEMIDE 20 MG TAB PO SCH (11:36)
[2021-09-07] MEDS: LISINOPRIL 10 MG TAB PO SCH (11:36)
[2021-09-07] MEDS: METOPROLOL TARTRATE 50 MG TAB PO SCH ×2 (11:36→23:31)
[2021-09-07] MEDS: diphenhydrAMINE 50 MG CAP PO SCH (12:00)
--- NOTE | 2021-09-07 12:03 | Consultation ---
<LEOBARDO ACKERMAN - Last Filed: 09/07/21 12:18> History of Present Illness Consult date: 09/07/21 Consult reason: chest pain History of present illness: 55-year old M with a history of dilated cardiomyopathy, and coronary artery disease. 3 weeks ago he was hospitalized with atypical chest johnson. An echo revealed a decrease left ventricular systolic function, EF 20-25%. Stress thallium test was negative for ischemia. 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 Co-morbidities include HIV disease, hypertension, hyperlipidemia and poly-substance abuse. Patient presents to the emergency department with chest pain. Chest pain is a typical, non-exertional, followed by abdominal pain, nausea and vomiting. Denies unusual shortness of breath. There is no lower extremity edema. Chest x-ray reports no evidence of interstitial edema. Cardiac isoenzymes shows evidence of rhabdomyolysis. An ECG is sinus rhythm. No acute ST or T wave changes. Cardiology consultation has been requested. Past History Past Medical History: CAD (History of coronary stent x2), COPD, heart failure, hypertension, pulmonary embolism, other (Osteoarthritis, hepatitis B, hepatitis C, HIV) Past Surgical History: Other (Coronary stent, back surgery, neck surgery) Social history: smoking (Half a pack per day), other (EtOH use, cocaine abuse) Family history: no significant family history Medications and Allergies Allergies Allergy/AdvReac Type Severity Reaction Status Date / Time No Known Allergies Allergy Verified 08/08/21 20:31 Home Medications Medication Instructions Recorded Confirmed Last Taken Type Albuterol Mdi (or & Nicu Only) 2 puff IH QID PRN #8.5 gram 08/08/21 09/07/21 Unknown Rx [ProAir HFA Inhaler] HYDROcodone/APAP 10-325 [[place] 2 tab PO QDAY 09/03/21 09/07/21 Unknown History 10-325 mg TAB] Hydrocodone Bit/Homatrop Me-Br 10 ml PO BID PRN 09/03/21 09/07/21 Unknown History [Hycodan 5 mg-1.5 mg/5 ml Soln] Hydrocortisone 2.5% [Hytone 2.5% 1 unit TP DAILY 09/03/21 09/07/21 Unknown History CREAM] Lidocaine [Lidoderm] 1 each TP DAILY 09/03/21 09/07/21 Unknown History Menthol [Biofreeze] 1 unit TP BID 09/03/21 09/07/21 Unknown History Oxycodone HCl/Acetaminophen 2 tab PO Q6H PRN 09/03/21 09/07/21 09/02/21 History [Percocet 10/325 mg] diphenhydrAMINE [Benadryl CAP] 50 mg PO BID 09/03/21 09/07/21 Unknown History oxyCODONE /ACETAMINOPHEN [Percocet 1 tab PO Q6HR PRN #15 tablet 09/04/21 1 Unknown Rx 5/325 mg] Aspirin EC [Halfprin EC] 81 mg PO QDAY 30 Days #30 tablet 09/08/21 Unknown Rx AtorvaSTATin [Lipitor] 40 mg PO QHS 30 Days #30 tablet 09/08/21 Unknown Rx Furosemide [Lasix TAB] 20 mg PO QDAY #10 tablet 09/08/21 Unknown Rx Gabapentin 1 cap PO DAILY #30 cap 09/08/21 Unknown Rx Metoprolol [Lopressor TAB] 50 mg PO BID 60 Days #30 tablet 09/08/21 Unknown Rx Mirtazapine [Remeron 15mg TAB] 7.5 mg PO QHS #30 tablet 09/08/21 Unknown Rx QUEtiapine [SEROquel] 200 mg PO QHS #30 09/08/21 Unknown Rx Spironolactone [Aldactone] 25 mg PO QDAY 30 Days #30 tablet 09/08/21 Unknown Rx lisinopriL [Lisinopril] 10 mg PO QDAY #30 09/08/21 Unknown Rx Active Meds: Active Medications Acetaminophen (Acetaminophen 325 Mg Tab) 650 mg PO Q4H PRN PRN Reason: Pain MILD(1-3)/Fever >100.5/CHOPRA Hydrocodone Bitart/Acetaminophen (Hydrocodone/Acetaminophen 5-325 Mg Tab) 2 each PO Q6H PRN PRN Reason: Pain, Moderate (4-6) Last Admin: 09/07/21 11:30 Dose: 2 each Documented by: Aspirin (Aspirin Ec 81 Mg Tab) 81 mg PO QDAY [facility] Last Admin: 09/07/21 11:35 Dose: 81 mg Documented by: Atorvastatin Calcium (Atorvastatin 40 Mg Tab) 40 mg PO QHS [facility] Diphenhydramine HCl (Diphenhydramine 50 Mg Cap) 50 mg PO BID [facility] Enoxaparin Sodium (Enoxaparin 40 Mg/0.4 Ml Inj) 40 mg SUB-Q QDAY [facility] Last Admin: 09/07/21 11:35 Dose: 40 mg Documented by: Furosemide (Furosemide 20 Mg Tab) 20 mg PO QDAY [facility] Last Admin: 09/07/21 11:36 Dose: 20 mg Documented by: Gabapentin (Gabapentin 400 Mg Cap) 400 mg PO DAILY [facility] Last Admin: 09/07/21 11:35 Dose: 400 mg Documented by: Lisinopril (Lisinopril 10 Mg Tab) 10 mg PO QDAY [facility] Last Admin: 09/07/21 11:36 Dose: 10 mg Documented by: Metoprolol Tartrate (Metoprolol Tartrate 50 Mg Tab) 50 mg PO BID [facility] Last Admin: 09/07/21 11:36 Dose: 50 mg Documented by: Morphine Sulfate (Morphine 2 Mg/1 Ml Inj) 2 mg IV Q4H PRN PRN Reason: Pain , Severe (7-10) Ondansetron HCl (Ondansetron 4 Mg/2 Ml Inj) 4 mg IV Q8H PRN PRN Reason: Nausea And Vomiting Quetiapine Fumarate (Quetiapine 200 Mg Tab) 200 mg PO QHS [facility] Sodium Chloride (Sodium Chloride 0.9% 10 Ml Flush Syringe) 10 ml IV BID [facility] Sodium Chloride (Sodium Chloride 0.9% 10 Ml Flush Syringe) 10 ml IV PRN PRN PRN Reason: LINE FLUSH Spironolactone (Spironolactone 25 Mg Tab) 25 mg PO QDAY [facility] Last Admin: 09/07/21 11:35 Dose: 25 mg Documented by: Review of Systems Cardiovascular: chest pain Physical Examination Vital Signs Temp Pulse Resp BP Pulse Ox 98.4 F 99 H 20 129/97 99 09/07/21 04:22 09/07/21 04:22 09/07/21 04:22 09/07/21 04:22 09/07/21 04:22 General appearance: no acute distress HEENT: Positive: PERRL Neck: Positive: trachea midline Cardiac: Positive: Reg Rate and Rhythm Lungs: Positive: Decreased Breath Sounds Neuro: Positive: Grossly Intact Extremities: Absent: edema Results 09/07/21 04:58 09/07/21 04:58 Cardiac Enzymes 09/07/21 Range/Units 04:58 CK-MB (CK-2) 17.1 H (0.0-4.0) ng/mL Coagulation 09/07/21 Range/Units 04:58 PT 13.2 (12.2-14.9) Sec. INR 0.94 (0.87-1.13) CBC 09/07/21 Range/Units 04:58 WBC 4.6 (4.5-11.0) K/mm3 RBC 4.04 (3.65-5.03) M/mm3 Hgb 12.5 (11.8-15.2) gm/dl Hct 37.3 (35.5-45.6) % Plt Count 156 (140-440) K/mm3 Lymph # (Auto) 1.7 (1.2-5.4) K/mm3 [place] # (Auto) 0.7 (0.0-0.8) K/mm3 Eos # (Auto) 0.2 (0.0-0.4) K/mm3 Baso # (Auto) 0.0 (0.0-0.1) K/mm3 Comprehensive Metabolic Panel 09/07/21 Range/Units 04:58 Sodium 136 L (137-145) mmol/L Potassium 4.4 (3.6-5.0) mmol/L Chloride 100.3 (98-107) mmol/L Carbon Dioxide 21 L (22-30) mmol/L BUN 11 (9-20) mg/dL Creatinine 0.8 (0.8-1.3) mg/dL Glucose 68 L (75-100) mg/dL Calcium 8.9 (8.4-10.2) mg/dL Assessment and Plan - Patient Problems (1) Chest pain Status: Acute Plan to address problem: Chest pain is atypical followed by abdominal pain, nausea and vomiting 07/2021 MPI - negative for ischemia. 07/2021 echo: decreased LVEF 20-25%. Continue medical therapy for dilated cardiomyopathy and coronary artery disease. Otherwise, conservative cardiac management. <BERYL OSORIO Last Filed: 09/12/21 17:53> History of Present Illness History of present illness: I SAW THIS PT & AGREE WITH THE Dx & Tx PLAN. Physical Examination Vital Signs Temp Pulse Resp BP Pulse Ox 98.4 F 99 H 20 129/97 99 09/07/21 04:22 09/07/21 04:22 09/07/21 04:22 09/07/21 04:22 09/07/21 04:22 Results 09/08/21 05:53 09/08/21 21:23
[2021-09-07] MEDS ORDERED: QUEtiapine 200 MG TAB PO SCH (22:00)
[2021-09-08] MEDS: diphenhydrAMINE 50 MG CAP PO SCH ×2 (02:29→11:41)
[2021-09-08] MEDS ORDERED: ZIPRASIDONE MESYLATE 20 MG VIAL IM ONE ×2 (04:00→04:02)
[2021-09-08 06:12] LABS: Hematocrit 38.9 % (35.5-45.6); Mean Corpuscular HGB Conc 33 % (32-34); Mean Corpuscular Volume 93 fl (84-94); Platelet Count 172 K/mm3 (140-440); Red Blood Count 4.19 M/mm3 (3.65-5.03)
[2021-09-08 06:13] LABS: Red Cell Distribution Width 20.3 % (13.2-15.2)
[2021-09-08 06:46] LABS: BUN/Creatinine Ratio 17; Blood Urea Nitrogen 17 mg/dL (9-20); Calcium 8.8 mg/dL (8.4-10.2); Hemolysis Index 4
[2021-09-08] MEDS: POTASSIUM CHLORIDE 10 MEQ 10 MEQ/100 ML BAG IV SCH ×4 (07:10→11:41)
[2021-09-08 07:26] LABS: Anisocytosis 1+; Platelet Estimate Consistent w Auto; Total Cells Counted 100
[2021-09-08] MEDS: HYDROcodone/ACETAMINOPHEN 5-325 MG TAB PO PRN ×2 (08:34→22:36)
--- NOTE | 2021-09-08 08:35 | Consultation ---
History of Present Illness - Reason for Consult Consult date: 09/08/21 Reason for consult: drug use - History of Present Psychiatric Illness Star Vidal was seem today, she is sleeping but easily arouses. He drifts off at times between questioning. He says he came to the hospital for chest pain. The patient says he has a history of schizophrenia and takes seroquel and remeron. He says he's been compliant with them. Mr. Vidal says he uses "crack and drinks about a 12 pack per day." He denies SI/HI or hallucinations of any kind. PAST PSYCHIATRIC HISTORY Diagnoses: Schizophrenia Suicide attempts or Self-harm behavior: Denies Prior psychiatric hospitalizations: Yes Substance Abuse history: Alcohol and Cocaine Previous psychiatric seroquel and remeron Outpatient treatment: Yes PAST MEDICAL HISTORY: CAD (History of coronary stent x2), COPD, heart failure, hypertension, pulmonary embolism, other (Osteoarthritis, hepatitis B, hepatitis C, HIV) Family Psychiatric History: None reported or documented SOCIAL HISTORY Marital Status: Single Living Arrangements: Homeless Employment Status: Unemployed Access to guns/weapons: None reported Education: History of Abuse: Denies Legal History: Denies REVIEW OF SYSTEMS Constitutional: Negative for weight loss ENT: Negative for stridor Respiratory: Negative for cough or hemoptysis All other systems reviewed and are negative MENTAL STATUS EXAMINATION General Appearance and Behavior: Age appropriate, good hygiene, wearing appropriate clothes, good eye contact, drowsy Cooperation: Participating/engaged Psychomotor Behavior: Psychomotor normal Mood: not too good Affect and affective range: Congruent to stated mood Thought Process: goal Directed Thought Content: None Speech: normal tone and pace Suicidal Ideation: Denies Homicidal Ideation: Denies Hallucinations: Denies Impulse Control: Limited Insight and Judgment: Limited Memory: Normal Attention: drowsy Orientation: Alert and oriented Assessment and Plan (1) Hx Schizophrenia-F20.9 (2) Cocaine Use Disorder Treatment Plan Agree with home seroquel Restart home Remeron 7.5mg po daily CIWA Sitter: per primary Medical: per primary Disposition: Do not recommend acute psychiatric inpatient treatment The patient to abstain from all illicit drug use The sitter to give the patient all necessary resources for outpatient treatment Will sign off. Thanks. Case staffed with Dr. Niño Medications and Allergies Allergies Allergy/AdvReac Type Severity Reaction Status Date / Time No Known Allergies Allergy Verified 08/08/21 20:31 Home Medications Medication Instructions Recorded Confirmed Last Taken Type Albuterol Mdi (or & Nicu Only) 2 puff IH QID PRN #8.5 gram 08/08/21 09/07/21 Unknown Rx [ProAir HFA Inhaler] Furosemide [Lasix TAB] 20 mg PO QDAY #10 tablet 08/08/21 09/07/21 Unknown Rx Aspirin EC [Halfprin EC] 81 mg PO QDAY 30 Days #30 tablet 08/13/21 09/07/21 09/01/21 Rx AtorvaSTATin [Lipitor] 40 mg PO QHS 30 Days #30 tablet 08/13/21 09/07/21 Unknown Rx Metoprolol [Lopressor TAB] 50 mg PO BID 60 Days #30 tablet 08/13/21 09/07/21 Unknown Rx Spironolactone [Aldactone] 25 mg PO QDAY 30 Days #30 tablet 08/13/21 09/07/21 U nknown Rx Gabapentin 1 - 2 cap PO DAILY 09/03/21 09/07/21 Unknown History HYDROcodone/APAP 10-325 [[place] 2 tab PO QDAY 09/03/21 09/07/21 Unknown History 10-325 mg TAB] Hydrocodone Bit/Homatrop Me-Br 10 ml PO BID PRN 09/03/21 09/07/21 Unknown History [Hycodan 5 mg-1.5 mg/5 ml Soln] Hydrocortisone 2.5% [Hytone 2.5% 1 unit TP DAILY 09/03/21 09/07/21 Unknown History CREAM] Lidocaine [Lidoderm] 1 each TP DAILY 09/03/21 09/07/21 Unknown History Menthol [Biofreeze] 1 unit TP BID 09/03/21 09/07/21 Unknown History Oxycodone HCl/Acetaminophen 2 tab PO Q6H PRN 09/03/21 09/07/21 09/02/21 History [Percocet 10/325 mg] QUEtiapine [SEROquel] 200 mg PO QHS 09/03/21 09/07/21 Unknown History diphenhydrAMINE [Benadryl CAP] 50 mg PO BID 09/03/21 09/07/21 Unknown History lisinopriL [Lisinopril] 10 mg PO QDAY 09/03/21 09/07/21 Unknown History oxyCODONE /ACETAMINOPHEN [Percocet 1 tab PO Q6HR PRN #15 tablet 09/04/21 09/07/21 Unknown Rx 5/325] Active Meds: Active Medications Acetaminophen (Acetaminophen 325 Mg Tab) 650 mg PO Q4H PRN PRN Reason: Pain MILD(1-3)/Fever >100.5/CHOPRA Hydrocodone Bitart/Acetaminophen (Hydrocodone/Acetaminophen 5-325 Mg Tab) 2 each PO Q6H PRN PRN Reason: Pain, Moderate (4-6) Last Admin: 09/07/21 23:32 Dose: 2 each Documented by: Aspirin (Aspirin Ec 81 Mg Tab) 81 mg PO QDAY [facility] Last Admin: 09/07/21 11:35 Dose: 81 mg Documented by: Atorvastatin Calcium (Atorvastatin 40 Mg Tab) 40 mg PO QHS [facility] Last Admin: 09/07/21 23:31 Dose: 40 mg Documented by: Diphenhydramine HCl (Diphenhydramine 50 Mg Cap) 50 mg PO BID [facility] Last Admin: 09/08/21 02:29 Dose: 50 mg Documented by: Enoxaparin Sodium (Enoxaparin 40 Mg/0.4 Ml Inj) 40 mg SUB-Q QDAY [facility] Last Admin: 09/07/21 11:35 Dose: 40 mg Documented by: Furosemide (Furosemide 20 Mg Tab) 20 mg PO QDAY [facility] Last Admin: 09/07/21 11:36 Dose: 20 mg Documented by: Gabapentin (Gabapentin 400 Mg Cap) 400 mg PO DAILY [facility] Last Admin: 09/07/21 11:35 Dose: 400 mg Documented by: Potassium Chloride (Kcl 10meq/100ml) 10 meq in 100 mls @ 100 mls/hr IV Q1H [facility] Stop: 09/08/21 10:59 Last Admin: 09/08/21 08:14 Dose: 100 mls/hr Documented by: Lisinopril (Lisinopril 10 Mg Tab) 10 mg PO QDAY [facility] Last Admin: 09/07/21 11:36 Dose: 10 mg Documented by: Metoprolol Tartrate (Metoprolol Tartrate 50 Mg Tab) 50 mg PO BID [facility] Last Admin: 09/07/21 23:31 Dose: 50 mg Documented by: Morphine Sulfate (Morphine 2 Mg/1 Ml Inj) 2 mg IV Q4H PRN PRN Reason: Pain , Severe (7-10) Ondansetron HCl (Ondansetron 4 Mg/2 Ml Inj) 4 mg IV Q8H PRN PRN Reason: Nausea And Vomiting Quetiapine Fumarate (Quetiapine 200 Mg Tab) 200 mg PO QHS [facility] Last Admin: 09/07/21 23:31 Dose: 200 mg Documented by: Sodium Chloride (Sodium Chloride 0.9% 10 Ml Flush Syringe) 10 ml IV BID [facility] Last Admin: 09/07/21 23:34 Dose: 10 ml Documented by: Sodium Chloride (Sodium Chloride 0.9% 10 Ml Flush Syringe) 10 ml IV PRN PRN PRN Reason: LINE FLUSH Spironolactone (Spironolactone 25 Mg Tab) 25 mg PO QDAY [facility] Last Admin: 09/07/21 11:35 Dose: 25 mg Documented by: Mental Status Exam - Vital signs Last Vital Signs Temp 98.1 F 09/07/21 19:40 Pulse 78 09/08/21 07:49 Resp 17 09/08/21 07:49 BP 104/76 09/08/21 07:49 Pulse Ox 100 09/08/21 07:49 Results Result Diagrams: 09/08/21 05:53 09/08/21 05:53 Abnormal lab results 09/08/21 09/08/21 Range/Units 05:53 05:53 WBC 4.2 L (4.5-11.0) K/mm3 RDW 20.3 H (13.2-15.2) % Monocytes % (Manual) 16.0 H (0.0-7.3) % Lymphocytes # (Manual) 1.1 L (1.2-5.4) K/mm3 Sodium 120 L D (137-145) mmol/L Potassium 1.5 L* D (3.6-5.0) mmol/L Chloride 60.0 L (98-107) mmol/L All other labs normal.
[2021-09-08] MEDS ORDERED: LORazepam 2 MG/ML VIAL IV PRN (09:00)
[2021-09-08] MEDS ORDERED: chlordiazePOXIDE 25 MG CAP PO PRN (09:00)
[2021-09-08 09:54] LABS: Benzodiazepines Screen,Urine Negative; Methadone Screen,Urine Negative; Opiate Screen,Urine Negative
[2021-09-08 10:16] LABS: Amphetamine Screen,Urine Positive; Cannabinoid Screen,Urine Positive; Cocaine Screen,Urine Positive
[2021-09-08] MEDS: ENOXAPARIN 40 MG/0.4 ML INJ SUB-Q SCH (10:27)
[2021-09-08] MEDS: FUROSEMIDE 20 MG TAB PO SCH (10:28)
[2021-09-08] MEDS: METOPROLOL TARTRATE 50 MG TAB PO SCH (10:28)
[2021-09-08] MEDS: GABAPENTIN 400 MG CAP PO SCH (10:28)
[2021-09-08] MEDS: LISINOPRIL 10 MG TAB PO SCH (10:29)
[2021-09-08] MEDS: ASPIRIN EC 81 MG TAB PO SCH (10:29)
--- NOTE | 2021-09-08 10:46 | Discharge Summary ---
Providers - Providers Date of Admission: 09/07/21 09:30 Date of discharge: 09/08/21 Attending physician: FELICITAS TAFOYA 09/07/21 Consult to Cardiac Rehabilitation [CONS] Routine Reason For Exam: Phase 1 09/07/21 05:21 Consult to Mental Health [CONS] Stat Reason For Exam: Suicidal ideation 09/07/21 08:09 Consult to Cardiology [CONS] Routine Consulting Provider: BLANE WELLS Reason For Exam: cp 09/07/21 12:06 psychiatry consult [Consult to Mental Health] [CONS] Routine Reason For Exam: suicidal ideation 09/07/21 17:19 Physical Therapy Evaluation and Treat [CONS] Routine Comment: Reason For Exam: Debility 09/07/21 17:20 Occupational Therapy Evaluate and Treat [CONS] Routine Comment: Reason For Exam: Debility 09/08/21 08:26 psychiatry consult [Consult to Mental Health] [CONS] Routine Reason For Exam: suicidal ideation Primary care physician: SUBSTATION ENGINEER Hospitalization Reason for admission: cp, SI Condition: Fair Hospital course: 55-year-old male with significant past medical history of hypertension, IA x2, CHF, PE, hepatitis B, hepatitis C, chronic kidney disease, LAURIE, COPD, cocaine abuse and HIV who presents with complaint of chest pain. 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 Patient described the pain as a constant sharp throbbing pain in the left chest radiating to the right chest. Patient also reported associated shortness of breath, nausea, vomiting and diaphoresis. Patient reported a previous history of IA with last ischemic evaluation via cardiac catheterization in 2010. Actually, patient was seen here recently. Cardiology saw the patient in consultation and reported recent evaluation 3 weeks ago which revealed An echo with a decrease left ventricular systolic function, EF 20-25%. Stress thallium test was negative for ischemia. Chest x-ray reports no evidence of interstitial edema. Cardiac isoenzymes showed no evidence of rhabdomyolysis. An ECG was sinus rhythm. No acute ST or T wave changes. Cardiology felt that patient should continue with medical therapy for dilated cardiomyopathy and coronary artery disease. Patient had no decompensated heart failure. Other issues during hospital stay included suicidal ideation reported by the ER nurse. Psychiatry was consulted and recommended restarting home Remeron 7.5 mg p.o. daily and home Seroquel. Psychiatry recommended no acute inpatient psychiatric treatment. The patient is to abstain from all illicit drug use. Dedicated discharge time 35 minutes. Disposition: 01 HOME / SELF CARE / HOMELESS Final Discharge Diagnosis (Prints w/discharge instructions): Chest pain, etiol ogy likely secondary to GERD, compensated chronic systolic heart failure, cocaine use disorder, schizophrenia Core Measure Documentation - Palliative Care Palliative Care/ Comfort Measures: Not Applicable - Core Measures Any of the following diagnoses?: none Exam - Constitutional Vitals: Temp Pulse Resp BP Pulse Ox 98.1 F 75 17 132/96 100 09/07/21 19:40 09/08/21 10:29 09/08/21 07:49 09/08/21 10:29 09/08/21 07:49 General appearance: Present: no acute distress, well-nourished - EENT Eyes: Present: PERRL ENT: hearing intact, clear oral mucosa - Neck Neck: Present: supple, normal ROM - Respiratory Respiratory effort: normal Respiratory: bilateral: CTA - Cardiovascular Heart Sounds: Present: S1 & S2. Absent: rub, click - Extremities Extremities: pulses symmetrical, No edema Peripheral Pulses: within normal limits - Abdominal General gastrointestinal: Present: soft, non-tender, non-distended, normal bowel sounds Male genitourinary: Present: normal - Integumentary Integumentary: Present: clear, warm, dry - Musculoskeletal Musculoskeletal: gait normal, strength equal bilaterally - Psychiatric Psychiatric: appropriate mood/affect, intact judgment & insight - Neurologic Neurologic: CNII-XII intact, moves all extremities Plan Activity: advance as tolerated Weight Bearing Status: Weight Bear as Tolerated Diet: regular Follow up with: JOE NEAL MD [Primary Care Provider] - 7 Days BLANE WELLS MD [Staff Physician] - 7 Days Prescriptions: Spironolactone [Aldactone] 25 mg PO QDAY 30 Days #30 tablet Gabapentin 1 cap PO DAILY #30 cap Aspirin EC [Halfprin EC] 81 mg PO QDAY 30 Days #30 tablet Furosemide [Lasix TAB] 20 mg PO QDAY #10 tablet AtorvaSTATin [Lipitor] 40 mg PO QHS 30 Days #30 tablet lisinopriL [Lisinopril] 10 mg PO QDAY #30 Metoprolol [Lopressor TAB] 50 mg PO BID 60 Days #30 tablet Mirtazapine [Remeron 15mg TAB] 7.5 mg PO QHS #30 tablet QUEtiapine [SEROquel] 200 mg PO QHS #30
[2021-09-08] MEDS: SPIRONOLACTONE 25 MG TAB PO SCH (11:41)
--- NOTE | 2021-09-08 12:05 | Progress Note ---
Assessment and Plan - Patient Problems (1) Chest pain Current Visit: Yes Status: Acute Plan to address problem: Chest pain is atypical followed by abdominal pain, nausea and vomiting 07/2021 MPI - negative for ischemia. 07/2021 echo: decreased LVEF 20-25%. Recommendations: Replete potassium. Once correction of electrolytes are completed, repeat a 12- lead ECG. Continue medical therapy for dilated cardiomyopathy and coronary artery disease. Subjective Date of service: 09/08/21 Interval history: ECG done today is abnormal but this is likely due to abnormal electrolytes. Labs today shows severe hypokalemia with a potassium of 1.5, and hyponatremia, with a sodium of 120. Objective Vital Signs Temp Pulse Resp BP BP Pulse Ox 09/08/21 11:41 73 105/77 09/08/21 10:29 75 132/96 09/08/21 10:28 70 132/96 09/08/21 07:49 78 17 104/76 100 09/08/21 07:12 80 13 110/77 99 09/08/21 04:45 75 15 110/81 100 09/08/21 02:01 73 15 109/77 100 09/08/21 00:01 82 16 114/79 98 09/07/21 23:32 18 09/07/21 23:31 95 H 139/104 09/07/21 19:40 98.1 F 87 14 133/93 100 - Physical Examination General: No Apparent Distress HEENT: Positive: PERRL Neck: Positive: trachea midline Cardiac: Positive: Reg Rate and Rhythm Lungs: Positive: Decreased Breath Sounds Neuro: Positive: Grossly Intact Extremities: Absent: edema - Labs and Meds CBC 09/08/21 Range/Units 05:53 WBC 4.2 L (4.5-11.0) K/mm3 RBC 4.19 (3.65-5.03) M/mm3 Hgb 13.0 (11.8-15.2) gm/dl Hct 38.9 (35.5-45.6) % Plt Count 172 (140-440) K/mm3 Comprehensive Metabolic Panel 09/08/21 Range/Units 05:53 Sodium 120 L D (137-145) mmol/L Potassium 1.5 L* D (3.6-5.0) mmol/L Chloride 60.0 L (98-107) mmol/L Carbon Dioxide 28 D (22-30) mmol/L BUN 17 (9-20) mg/dL Creatinine 1.0 (0.8-1.3) mg/dL Glucose 93 (75-100) mg/dL Calcium 8.8 (8.4-10.2) mg/dL
[2021-09-08] MEDS ORDERED: carvediloL 6.25 MG TAB PO SCH (22:00)
[2021-09-08] MEDS ORDERED: MIRTAZAPINE 15 MG TAB PO SCH (22:00)
[2021-09-08 22:06] LABS: BUN/Creatinine Ratio 19; Blood Urea Nitrogen 19 mg/dL (9-20); Calcium 8.9 mg/dL (8.4-10.2); Hemolysis Index 10
[2021-09-08 23:31] VITALS: BP 108/65
--- NOTE | 2021-09-15 14:19 | Electrocardiograph Report ---
[facility] Test Date: 2021-09-08 Test Time: 04:39:11 Pat Name: MATHEW LEMUS Department: Room: [place] [address] Gender: M Hand I Blocker: NURSE : 1965 Requested By: FELICITAS TAFOYA Order Number: [id number] Reading MD: Vlad Harmon Measurements Intervals [place] Rate: 70 P: 66 [place]: 138 QRS: -31 QRSD: 88 T: -58 QT: 423 QTc: 455 Interpretive Statements Sinus rhythm Left ventricular hypertrophy Abnormal T, consider ischemia, diffuse leads Compared to ECG 09/07/2021 04:48:23 Sinus rate has decreased Nonspecific inferolateral T wave abnormalities are now evident Electronically Signed On 09-15-2021 14:19:15 EDT by Vlad Harmon
== END 2021-09-08 23:00 | disposition home or self-care (01) | DRG 392 ==
LOC: ED 03:14 → 4A 06:03 → OBSVTOIN 09:30
PROVIDERS: ADMIT Internal Medicine Geriatric Medicine; ATTEND Hospitalist
DX: K21.9 Gastro-esophageal reflux disease without esophagitis (principal); I25.10 Atherosclerotic heart disease of native coronary artery without angina pectoris; I50.22 Chronic systolic (congestive) heart failure; N18.9 Chronic kidney disease, unspecified; I13.0 Hypertensive heart and chronic kidney disease with heart failure and stage 1 through stage 4 chronic kidney disease, or unspecified chronic kidney disease; I42.0 Dilated cardiomyopathy; F14.10 Cocaine abuse, uncomplicated; F20.9 Schizophrenia, unspecified; M19.90 Unspecified osteoarthritis, unspecified site; J44.9 Chronic obstructive pulmonary disease, unspecified; M62.82 Rhabdomyolysis; Z98.61 Coronary angioplasty status; I25.2 Old myocardial infarction
CPT/HCPCS: 36415; 71045; 80048; 80307; 82550; 82553; 83735; 84484; 85007; 85025; 85610; 93005; G0378; J1650; J2060; J2405; J3010; J3480; J3486

== ENCOUNTER 2021-10-04 07:10 | Emergency (ER) | payer MEDICAID ==
[2021-10-04] MEDS ORDERED: ASPIRIN 81 MG TAB CHEW PO ONE (07:35)
--- NOTE | 2021-10-04 07:41 | Emergency Department Report ---
ED Chest Pain HPI - General Chief Complaint: Chest Pain Stated Complaint: CHEST PAIN/X3DAYS Time Seen by Provider: 10/04/21 07:20 Source: EMS Mode of arrival: Stretcher Limitations: No Limitations - History of Present Illness Initial Comments: Patient is 55 years old male with history of coronary artery disease status post stent, hypertension, HIV. Patient presented to the ER complaining of chest pain. Patient describes his chest pain as sharp and tightness. He stated that is similar to his previous chest pain. Patient denied any shortness of breath, fever or chills. Patient has been seen recently for the same complaint and has been evaluated by water plant maintenance mechanic and advised to do medical treatment. Patient admitted that he has been using cocaine also. MD Complaint: chest pain -: Last night Onset: during rest Pain Location: substernal Pain Radiation: none Severity: moderate Severity scale (0 -10): 5 Quality: tightness Consistency: intermittent - Related Data Home Medications Medication Instructions Recorded Confirmed Last Taken diphenhydrAMINE [Benadryl CAP] 50 mg PO BID 09/03/21 10/04/21 Unknown Previous Rx's Medication Instructions Recorded Last Taken Type Albuterol Mdi (or & Nicu Only) 2 puff IH QID PRN #8.5 gram 08/08/21 Unknown Rx [ProAir HFA Inhaler] Aspirin EC [Halfprin EC] 81 mg PO QDAY 30 Days #30 tablet 09/08/21 Unknown Rx AtorvaSTATin [Lipitor] 40 mg PO QHS 30 Days #30 tablet 09/08/21 Unknown Rx Furosemide [Lasix TAB] 20 mg PO QDAY #10 tablet 09/08/21 Unknown Rx Gabapentin 1 cap PO DAILY #30 cap 09/08/21 Unknown Rx Metoprolol [Lopressor TAB] 50 mg PO BID 60 Days #30 tablet 09/08/21 Unknown Rx QUEtiapine [SEROquel] 200 mg PO QHS #30 09/08/21 Unknown Rx Spironolactone [Aldactone] 25 mg PO QDAY 30 Days #30 tablet 09/08/21 Unknown Rx lisinopriL [Lisinopril] 10 mg PO QDAY #30 09/08/21 Unknown Rx Ondansetron [Zofran Odt] 4 mg PO Q8HR PRN #14 tab.rapdis 10/04/21 Unknown Rx traMADoL [Ultram] 50 mg PO Q6HR PRN #14 tablet 10/04/21 Unknown Rx Allergies Allergy/AdvReac Type Severity Reaction Status Date / Time No Known Allergies Allergy Verified 08/08/21 20:31 Heart Score - HEART Score History: Moderately suspicious EKG: Non-specific Age: 45-65 Risk factors: > 3 risk factors or hx of atherosclerotic disease Troponin: < normal limit HEART Score: 5 - EKG Read Time Time EKG Completed: 07:35 EKG Read Time: 07:40 - Critical Actions Critical Actions: 4-6 pts:12-16.6% risk of adverse cardiac event. Should be admitted ED Review of Systems ROS: Stated complaint: CHEST PAIN/X3DAYS Other details as noted in HPI Comment: All other systems reviewed and negative Constitutional: denies: chills, fever Respiratory: denies: cough, shortness of breath, SOB with exertion Cardiovascular: chest pain. denies: palpitations Gastrointestinal: denies: abdominal pain, nausea, vomiting Musculoskeletal: denies: back pain Neurological: denies: headache, weakness, numbness, paresthesias, confusion ED Past Medical Hx - Past Medical History Hx Hypertension: Yes Hx Heart Attack/AMI: Yes (x 2) Hx Congestive Heart Failure: Yes Hx Pulmonary Embolism: Yes Hx Liver Disease: Yes (hep B and hep C) Hx Renal Disease: Yes Hx Arthritis: Yes (osteoarthritis) Hx Seizures: No Hx Psychiatric Treatment: Yes Hx COPD: Yes Hx HIV: Yes (No meds, unknown CD4 count) Additional medical history: sleep apnea - Surgical History Hx Coronary Stent: Yes (x 2) Hx Open Heart Surgery: No Hx Pacemaker: No Hx Internal Defibrillator: No Hx Cholecystectomy: No Hx Appendectomy: No Hx Breast Surgery: No Additional Surgical History: neck surgery, back surgery - Social History Smoking Status: Unknown if ever smoked - Medications Home Medications: Home Medications Medication Instructions Recorded Confirmed Last Taken Type Albuterol Mdi (or & Nicu Only) 2 puff IH QID PRN #8.5 gram 08/08/21 09/07/21 Unknown Rx [ProAir HFA Inhaler] diphenhydrAMINE [Benadryl CAP] 50 mg PO BID 09/03/21 10/04/21 Unknown History Aspirin EC [Halfprin EC] 81 mg PO QDAY 30 Days #30 tablet 09/08/21 Unknown Rx AtorvaSTATin [Lipitor] 40 mg PO QHS 30 Days #30 tablet 09/08/21 Unknown Rx Furosemide [Lasix TAB] 20 mg PO QDAY #10 tablet 09/08/21 Unknown Rx Gabapentin 1 cap PO DAILY #30 cap 09/08/21 10/04/21 Unknown Rx Metoprolol [Lopressor TAB] 50 mg PO BID 60 Days #30 tablet 09/08/21 10/04/21 Unknown Rx QUEtiapine [SEROquel] 200 mg PO QHS #30 09/08/21 10/04/21 Unknown Rx Spironolactone [Aldactone] 25 mg PO QDAY 30 Days #30 tablet 09/08/21 10/04/21 Unknown Rx lisinopriL [Lisinopril] 10 mg PO QDAY #30 09/08/21 Unknown Rx Ondansetron [Zofran Odt] 4 mg PO Q8HR PRN #14 tab.rapdis 10/04/21 Unknown Rx traMADoL [Ultram] 50 mg PO Q6HR PRN #14 tablet 10/04/21 Unknown Rx ED Physical Exam - General Limitations: No Limitations General appearance: alert, in no apparent distress - Head Head exam: Present: atraumatic, normocephalic, normal inspection - Eye Eye exam: Present: normal appearance - ENT ENT exam: Present: normal exam, normal orophraynx, mucous membranes moist - Neck Neck exam: Present: normal inspection, full ROM. Absent: tenderness, meningismus - Respiratory Respiratory exam: Present: normal lung sounds bilaterally - Cardiovascular Cardiovascular Exam: Present: regular rate, normal rhythm, normal heart sounds - GI/Abdominal GI/Abdominal exam: Present: soft, normal bowel sounds. Absent: distended, tenderness, guarding, rebound, rigid, organomegaly, mass, bruit, pulsatile mass, hernia - Extremities Exam Extremities exam: Present: normal inspection, full ROM, normal capillary refill. Absent: tenderness - Back Exam Back exam: Present: normal inspection, full ROM. Absent: CVA tenderness (R), CVA tenderness (L) - Neurological Exam Neurological exam: Present: alert, oriented X3, CN II-XII intact - Psychiatric Psychiatric exam: Present: normal mood - Skin Skin exam: Present: warm, intact, normal color ED Course Vital Signs 10/04/21 10/04/21 10/04/21 07:16 07:29 07:30 Temperature 98.7 F Pulse Rate 94 H Respiratory 16 Rate Blood Pressure Blood Pressure [Left] Blood Pressure 152/93 [Right] O2 Sat by Pulse 99 99 97 Oximetry 10/04/21 10/04/21 10/04/21 07:35 07:41 07:42 Temperature 98.0 F 98.2 F Pulse Rate 94 H 94 H Respiratory 16 16 16 Rate Blood Pressure 144/98 Blood Pressure 144/98 [Left] Blood Pressure 144/98 [Right] O2 Sat by Pulse 100 100 99 Oximetry 10/04/21 10/04/21 10/04/21 07:46 08:16 08:20 Temperature Pulse Rate 94 H 89 96 H Respiratory 19 12 Rate Blood Pressure 144/98 155/107 Blood Pressure [Left] Blood Pressure [Right] O2 Sat by Pulse 99 99 Oximetry 10/04/21 10/04/21 10/04/21 08:30 08:46 09:00 Temperature Pulse Rate 92 H 96 H 97 H Respiratory 22 19 19 Rate Blood Pressure 155/107 143/88 143/88 Blood Pressure [Left] Blood Pressure [Right] O2 Sat by Pulse 100 97 98 Oximetry 10/04/21 10/04/21 10/04/21 09:16 09:30 10:00 Temperature Pulse Rate 90 93 H 88 Respiratory 24 20 18 Rate Blood Pressure 137/87 137/87 137/87 Blood Pressure [Left] Blood Pressure [Right] O2 Sat by Pulse 99 98 100 Oximetry 10/04/21 10/04/21 10/04/21 10:30 10:46 11:00 Temperature Pulse Rate 108 H 92 H 91 H Respiratory 14 17 21 Rate Blood Pressure 136/87 143/80 143/80 Blood Pressure [Left] Blood Pressure [Right] O2 Sat by Pulse 100 100 99 Oximetry 10/04/21 10/04/21 10/04/21 11:16 11:30 11:46 Temperature Pulse Rate 93 H 94 H 90 Respiratory 21 20 20 Rate Blood Pressure 132/75 132/75 126/76 Blood Pressure [Left] Blood Pressure [Right] O2 Sat by Pulse 99 98 100 Oximetry 10/04/21 10/04/21 10/04/21 12:00 12:16 12:30 Temperature Pulse Rate 88 89 88 Respiratory 21 19 12 Rate Blood Pressure 126/76 128/75 128/75 Blood Pressure [Left] Blood Pressure [Right] O2 Sat by Pulse 98 99 100 Oximetry 10/04/21 10/04/21 10/04/21 12:46 13:17 13:58 Temperature Pulse Rate 95 H Respiratory 19 Rate Blood Pressure 127/74 127/74 127/74 Blood Pressure [Left] Blood Pressure [Right] O2 Sat by Pulse 99 Oximetry 10/04/21 10/04/21 14:46 14:50 Temperature 98.3 F Pulse Rate 75 Respiratory 19 Rate Blood Pressure 127/74 Blood Pressure 128/90 [Left] Blood Pressure [Right] O2 Sat by Pulse 95 Oximetry ED Medical Decision Making - Lab Data Result diagrams: 10/04/21 08:08 10/04/21 08:08 - EKG Data -: EKG Interpreted by Wa EKG shows normal: sinus rhythm Rate: normal - EKG Data Interpretation: no acute changes - Radiology Data Radiology results: report reviewed - Medical Decision Making Patient is 55 years old male with history of coronary artery disease status post stent, hypertension, HIV. Patient presented to the ER complaining of chest pain. Patient describes his chest pain as sharp and tightness. He stated that is similar to his previous chest pain. Patient denied any shortness of breath, fever or chills. Patient has been seen recently for the same complaint and has been evaluated by water plant maintenance mechanic and advised to do medical treatment. Patient admitted that he has been using cocaine also. EKG is unremarkable. Labs reviewed and is unremarkable including a negative troponin x2. Patient remained stable in the ER with stable vital sign. Patient advised to follow-up with his water plant maintenance mechanic in the next 2 to 3 days and to return to the ER if he develop any new symptoms. Critical care attestation.: If time is entered above; I have spent that time in minutes in the direct care of this critically ill patient, excluding procedure time. ED Disposition Clinical Impression: Acute chest pain, Cocaine abuse Disposition: 01 HOME / SELF CARE / HOMELESS Is pt being admited?: No Condition: Stable Instructions: Nonspecific Chest Pain, Adult, Chest Pain (ED) Prescriptions: traMADoL [Ultram] 50 mg PO Q6HR PRN #14 tablet PRN Reason: Pain Ondansetron [Zofran Odt] 4 mg PO Q8HR PRN #14 tab.rapdis PRN Reason: Nausea And Vomiting Referrals: PRIMARY CARE,MD [Primary Care Provider] - 3-5 Days
--- NOTE | 2021-10-04 08:12 | XRay Report ---
CHEST 1 VIEW INDICATION: Chest Pain. COMPARISON: 09/07/2021 FINDINGS: Support devices: None. Heart: Within normal limits. Lungs/Pleura: Minimal peribronchial opacity has developed in the left lower lobe behind the heart. Ot herwise the lungs are clear. No pleural effusion or pneumothorax. Additional findings: None. IMPRESSION: New subtle left lower lobe opacity which could represent atelectatic changes or early infiltrate. Pl ease correlate with the patient's clinical presentation. Signer Name: Chepe Dillard Jr, MD Signed: 10/04/2021 8:08 AM Workstation Name: [id number]
[2021-10-04 08:35] LABS: Basophils % (Auto) 0.6 % (0.0-1.8); Eosinophils # (Auto) 0.1 K/mm3 (0.0-0.4); Eosinophils % (Auto) 1.5 % (0.0-4.3); Hematocrit 36.8 % (35.5-45.6); Hemoglobin 11.8 gm/dl (11.8-15.2); Lymphocytes # (Auto) 1.1 K/mm3 (1.2-5.4); Lymphocytes % (Auto) 23.3 % (13.4-35.0); Mean Corpuscular HGB Conc 32 % (32-34); Mean Corpuscular Volume 93 fl (84-94); Monocytes # (Auto) 0.6 K/mm3 (0.0-0.8); Monocytes % (Auto) 13.4 % (0.0-7.3); Platelet Count 188 K/mm3 (140-440); Red Blood Count 3.96 M/mm3 (3.65-5.03); Red Cell Distribution Width 19.4 % (13.2-15.2)
[2021-10-04 08:57] LABS: BUN/Creatinine Ratio 13; Blood Urea Nitrogen 9 mg/dL (9-20); Calcium 8.4 mg/dL (8.4-10.2); Hemolysis Index 2
[2021-10-04 09:09] LABS: Amphetamine Screen,Urine Negative; Benzodiazepines Screen,Urine Negative; Methadone Screen,Urine Negative; Opiate Screen,Urine Negative
[2021-10-04 09:16] LABS: INR 0.95 (0.87-1.13)
[2021-10-04 09:17] LABS: Partial Thromboplastin Time 30.9 Sec. (24.2-36.6)
[2021-10-04 09:40] LABS: Cannabinoid Screen,Urine Positive; Cocaine Screen,Urine Positive
[2021-10-04 14:50] VITALS: BP 128/90
--- NOTE | 2021-10-05 11:11 | Electrocardiograph Report ---
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
== END 2021-10-04 14:51 | disposition home or self-care (01) ==
LOC: ED 07:10
DX: R07.9 Chest pain, unspecified (principal); F14.10 Cocaine abuse, uncomplicated; I13.0 Hypertensive heart and chronic kidney disease with heart failure and stage 1 through stage 4 chronic kidney disease, or unspecified chronic kidney disease; N18.9 Chronic kidney disease, unspecified; I50.9 Heart failure, unspecified; M19.90 Unspecified osteoarthritis, unspecified site; J44.9 Chronic obstructive pulmonary disease, unspecified; B20 Human immunodeficiency virus [HIV] disease; G47.30 Sleep apnea, unspecified; Z98.890 Other specified postprocedural states; Z79.899 Other long term (current) drug therapy
CPT/HCPCS: 36415; 71045; 80048; 80307; 83690; 83880; 84484; 85025; 85610; 85730; 93005; 99284

== ENCOUNTER 2022-01-10 04:18 | Emergency (ER) | payer MEDICAID ==
[2022-01-10] MEDS ORDERED: ASPIRIN 325 MG TAB PO ONE (05:03)
--- NOTE | 2022-01-10 05:48 | XRay Report ---
CHEST 2 VIEWS INDICATION / CLINICAL INFORMATION: chestpain. COMPARISON: None available. FINDINGS: SUPPORT DEVICES: None. HEART / MEDIASTINUM: No significant abnormality. LUNGS / PLEURA: No significant pulmonary or pleural abnormality. No pneumothorax. ADDITIONAL FINDINGS: No significant additional findings. IMPRESSION: 1. No active cardiopulmonary disease. Signer Name: Fahad Varghese II, MD Signed: 01/10/2022 5:43 AM Workstation Name: [id number]
[2022-01-10 05:50] LABS: Basophils % (Auto) 0.8 % (0.0-1.8); Eosinophils % (Auto) 0.9 % (0.0-4.3); Hemoglobin 13.3 gm/dl (11.8-15.2); Lymphocytes # (Auto) 1.3 K/mm3 (1.2-5.4); Lymphocytes % (Auto) 23.8 % (13.4-35.0); Mean Corpuscular HGB Conc 32 % (32-34); Mean Corpuscular Volume 92 fl (84-94); Monocytes # (Auto) 0.6 K/mm3 (0.0-0.8); Monocytes % (Auto) 11.4 % (0.0-7.3); Platelet Count 243 K/mm3 (140-440); Red Blood Count 4.56 M/mm3 (3.65-5.03); Red Cell Distribution Width 15.1 % (13.2-15.2)
[2022-01-10 06:29] LABS: Alanine Aminotransferase 66 units/L (7-56); Albumin 3.4 g/dL (3.9-5); BUN/Creatinine Ratio 14; Blood Urea Nitrogen 13 mg/dL (9-20); Calcium 8.1 mg/dL (8.4-10.2); Hemolysis Index 23
[2022-01-10 06:55] LABS: HDL Cholesterol 54 mg/dL (40-59); LDL Cholesterol,Direct 94 mg/dL (50-130)
[2022-01-10] MEDS ORDERED: ASPIRIN 325 MG TAB ONE (07:57)
[2022-01-10] MEDS ORDERED: HYDROcodone/ACETAMINOPHEN 5-325 MG TAB PO ONE (08:09)
[2022-01-10] MEDS ORDERED: ACETAMINOPHEN W/CODEINE 300-30 MG TAB PO ONE (08:11)
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
[2022-01-10 08:52] LABS: INR 0.98 (0.87-1.13); Partial Thromboplastin Time 27.7 Sec. (24.2-36.6)
[2022-01-10 13:27] VITALS: BP 116/96
--- NOTE | 2022-01-10 23:52 | Cat Scan Report ---
CTA CHEST WITH CONTRAST INDICATION : cp, sob coughing up blood, hiv OMNI 350 100 ML. TECHNIQUE: Axial imaging performed through the chest, with contrast bolus timing set to maximize opa cification of the pulmonary arteries. Sagittal and coronal reformatted images. 3-plane MIP reformatte d images were obtained. All CT scans at this location are performed using CT dose reduction for ALAR A by means of automated exposure control. Omnipaque 350 100 mL of intravenous contrast administered. COMPARISON: 08/08/2021 FINDINGS: Bolus: Contrast bolus timing is adequate. PTE: No filling defect is present to suggest PTE. Mediastinum: There is mild cardiomegaly which appears to be new since the previous exam. No pericard ial effusion. The thoracic aorta is unopacified but unremarkable. No pathologic mediastinal adenopath y. Lungs: Minimal airspace opacities have developed in the lower lobes, right greater than left. There is a new 1.3 cm subpleural opacity in the lateral right upper lobe on image 24, series 6. These opaci ties appear inflammatory in nature. No pulmonary nodule or mass. No pleural effusion or pneumothorax. Bones: No significant abnormality. Upper abdomen: Limited imaging of the upper abdomen shows nothing acute. IMPRESSION: No evidence for pulmonary embolus. Mild cardiomegaly Patchy bilateral lung infiltrates most consistent with an inflammatory process. Signer Name: Chepe Dillard Jr, MD Signed: 01/10/2022 9:56 AM Workstation Name: [id number]
--- NOTE | 2022-01-10 23:52 | Cat Scan Report ---
CT abdomen pelvis w con INDICATION / CLINICAL INFORMATION: Abdominal pain, diarrhea.. TECHNIQUE: Axial CT images were obtained through the abdomen and pelvis after 100 cc of Omnipaque [address] scans at this location are performed using CT dose reduction for ALARA by means of automated exposure control. COMPARISON: CT lumbar spine from 10/20/2021. FINDINGS: LOWER CHEST: The heart is enlarged. No pericardial effusion. Patchy bibasilar groundglass opacities a nd airspace consolidation. LIVER: Diffuse heterogeneity of the liver, likely related to passive hepatic congestion. Tiny hepatic hypodensities are unchanged, likely reflecting cysts. GALLBLADDER/BILIARY TREE: No significant abnormality PANCREAS: No significant abnormality SPLEEN: No significant abnormality ADRENALS: No significant abnormality KIDNEYS / URETER: No significant abnormality URINARY BLADDER: No significant abnormality REPRODUCTIVE ORGANS: No significant abnormality STOMACH / BOWEL: No evidence of bowel obstruction or inflammation. LYMPH NODES: No significant adenopathy. VASCULATURE: No significant abnormality. OTHER: No free air, free fluid, or focal fluid collection is identified. SKELETAL SYSTEM: Advanced left greater than right bilateral hip arthropathy. There is retrolisthesis and severe disc and endplate changes at L3-L4 with posterior decompression at this level, unchanged i n appearance from 10/20/2021 CT. IMPRESSION: 1. Diffuse heterogeneity of the liver likely resent hepatic congestive changes related to volume over load/CHF. Findings in the chest are detailed separately. 2. Otherwise, no acute abnormality of the abdomen or pelvis. No evidence of bowel obstruction or infl ammation. 3. Unchanged degenerative and postoperative changes of the lumbar spine from CT from 10/20/2021. 4. Other chronic and incidental findings as above. Signer Name: Darren Stubbs MD Signed: 01/10/2022 9:54 AM Workstation Name: [id number]
--- NOTE | 2022-01-11 13:18 | Electrocardiograph Report ---
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
== END 2022-01-10 13:27 | disposition home or self-care (01) ==
LOC: ED 04:18
DX: J18.9 Pneumonia, unspecified organism (principal); R06.02 Shortness of breath; M19.90 Unspecified osteoarthritis, unspecified site; I11.0 Hypertensive heart disease with heart failure; I50.9 Heart failure, unspecified; J44.9 Chronic obstructive pulmonary disease, unspecified; Z98.890 Other specified postprocedural states; F17.200 Nicotine dependence, unspecified, uncomplicated; Z21 Asymptomatic human immunodeficiency virus [HIV] infection status; Z91.14 Patient's other noncompliance with medication regimen; Z79.899 Other long term (current) drug therapy; R10.9 Unspecified abdominal pain
CPT/HCPCS: 36415; 71046; 71275; 74177; 80053; 80061; 84484; 85025; 85610; 85730; 93005; 93010; 99285; Q9967

== ENCOUNTER 2022-04-03 03:15 | Emergency (ER) | payer MEDICAID ==
--- NOTE | 2022-04-03 04:27 | XRay Report ---
CHEST 1 VIEW 04/03/2022 3:19 AM INDICATION / CLINICAL INFORMATION: Chest Pain. COMPARISON: 10/16/2022 FINDINGS: SUPPORT DEVICES: None. HEART / MEDIASTINUM: No significant abnormality. LUNGS / PLEURA: There are perihilar streaky opacities. No pneumothorax. ADDITIONAL FINDINGS: No significant additional findings. IMPRESSION: 1. Moderate pulmonary edema. Signer Name: Yousif Cortez DO Signed: 04/03/2022 4:22 AM Workstation Name: [id number]
[2022-04-03 04:34] LABS: Basophils % (Auto) 0.4 % (0.0-1.8); Eosinophils # (Auto) 0.1 K/mm3 (0.0-0.4); Eosinophils % (Auto) 1.4 % (0.0-4.3); Hematocrit 41.2 % (35.5-45.6); Hemoglobin 13.4 gm/dl (11.8-15.2); Lymphocytes # (Auto) 0.7 K/mm3 (1.2-5.4); Lymphocytes % (Auto) 12.2 % (13.4-35.0); Mean Corpuscular HGB Conc 33 % (32-34); Mean Corpuscular Volume 95 fl (84-94); Monocytes # (Auto) 0.7 K/mm3 (0.0-0.8); Monocytes % (Auto) 11.8 % (0.0-7.3); Platelet Count 150 K/mm3 (140-440); Red Blood Count 4.36 M/mm3 (3.65-5.03)
[2022-04-03 04:37] LABS: Red Cell Distribution Width 22.2 % (13.2-15.2)
[2022-04-03 04:43] LABS: Alanine Aminotransferase 49 units/L (7-56); Albumin 3.8 g/dL (3.9-5); BUN/Creatinine Ratio 11; Blood Urea Nitrogen 9 mg/dL (9-20); Hemolysis Index 22
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
--- NOTE | 2022-04-03 06:32 | Cat Scan Report ---
Echogenic CTA CHEST WITH CONTRAST INDICATION / CLINICAL INFORMATION: Elevated D-dimer/rule out PE. TECHNIQUE: Axial CT images were obtained through the chest after injection of 100 cc of Omnipaque 350 IV contrast. 3 plane MIP and/or 3D reconstructions were produced. All CT scans at this location are performed using CT dose reduction for ALARA by means of automated exposure control. COMPARISON: CT of the chest and CT of the abdomen and pelvis dated 01/10/2022 FINDINGS: PULMONARY ARTERIES: No pulmonary emboli. THORACIC AORTA: No significant abnormality. HEART: No significant abnormality. CORONARY ARTERY CALCIFICATION: None. MEDIASTINUM / REBEKAH: No significant abnormality. PLEURA: There is a trace right pleural effusion. No pneumothorax. LUNGS: Consolidations are noted in the bilateral lower lobes. There are also groundglass densities no edgardo right upper lobe. The consolidations in the bilateral lower lobes appears progressed compared to previous CT. The groundglass density within the right upper lobe appears slightly improved. There is a new 1.3 cm solid pulmonary nodule within the right upper lobe (series 2 image 51) ADDITIONAL FINDINGS: None. UPPER ABDOMEN: No acute findings. SKELETAL STRUCTURES: There is unchanged retrolisthesis of L5 on L4 with severe degenerative disc dise ase. IMPRESSION: 1. No CT evidence for pulmonary embolism. 2. Waxing and waning consolidations within the bilateral lower lobes, which may be secondary to infec tious process versus pulmonary edema versus inflammatory process. There is also slight decrease in pr ominence of groundglass attenuation within the right upper lobe which may be sequela of resolving inf lammatory process. 3. Single incidental pulmonary nodule(s) in the right upper lobe measuring 13 mm with solid characte ristics. Recommendation according to Fleischner Society 2017 Guidelines: Low Risk or High Risk Patien t: Consider CT at 3 months, PET/CT, or tissue sampling. Signer Name: Yousif Cortez DO Signed: 04/03/2022 6:28 AM Workstation Name: [id number]
[2022-04-03 06:34] VITALS: BP 143/103
[2022-04-03] MEDS ORDERED: ACETAMINOPHEN 325 MG TAB PO ONE (08:57)
--- NOTE | 2022-04-03 09:23 | Electrocardiograph Report ---
[facility] Test Date: 2022-04-03 Test Time: 03:38:32 Pat Name: MATHEW LEMUS Department: Room: Gender: M State'S Attorney: LIZABETH : 1965 Requested By: JESS RONDON Order Number: [id number] Reading MD: Osmani Bustos Measurements Intervals [place] Rate: 94 P: 62 CT: 165 QRS: -38 QRSD: 87 T: 51 QT: 376 QTc: 471 Interpretive Statements Sinus rhythm Incomplete right bundle branch block Left atrial enlargement Left ventricular hypertrophy Anteroseptal infarct, age undetermined Compared to ECG 03/08/2022 07:11:44 Q waves now present T-wave abnormality no longer present Electronically Signed On 04-03-2022 9:23:12 EDT by Osmani Bustos
== END 2022-04-03 10:19 | disposition home or self-care (01) ==
LOC: ED 03:15
DX: R07.9 Chest pain, unspecified (principal); I11.0 Hypertensive heart disease with heart failure; I50.9 Heart failure, unspecified; I21.9 Acute myocardial infarction, unspecified; N28.9 Disorder of kidney and ureter, unspecified; M19.90 Unspecified osteoarthritis, unspecified site; J44.9 Chronic obstructive pulmonary disease, unspecified; Z21 Asymptomatic human immunodeficiency virus [HIV] infection status; Z98.890 Other specified postprocedural states; Z79.899 Other long term (current) drug therapy; F17.200 Nicotine dependence, unspecified, uncomplicated
CPT/HCPCS: 36415; 71045; 71275; 80053; 84484; 85025; 85379; 93005; 99284; Q9967

== ENCOUNTER 2022-06-14 03:17 | Emergency (ER) | payer MEDICAID ==
--- NOTE | 2022-06-14 10:28 | XRay Report ---
CHEST 2 VIEWS INDICATION: Chest Pain. COMPARISON: 04/03/2022. FINDINGS: Support devices: None. Heart: Within normal limits. Lungs/Pleura: No acute air space or interstitial disease. No significant pleural effusion. IMPRESSION: No acute findings. Signer Name: Alphonso May MD Signed: 06/14/2022 10:23 AM Workstation Name: [id number]
[2022-06-14 11:10] LABS: Alanine Aminotransferase 47 units/L (7-56); Albumin 3.5 g/dL (3.9-5); Blood Urea Nitrogen 10 mg/dL (9-20); Hemolysis Index 39
[2022-06-14] MEDS ORDERED: DEXTROSE 50% IN WATER (25GM) 50 ML SYRINGE IV ONE ×2 (11:15→13:00)
[2022-06-14 11:34] LABS: BUN/Creatinine Ratio 20
[2022-06-14] MEDS ORDERED: D5W/0.45% NACL 1,000 ML IV SCH (13:00)
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
[2022-06-14] MEDS ORDERED: ACETAMINOPHEN 500 MG TAB PO ONE (13:35)
[2022-06-14] MEDS ORDERED: D5W/0.9% NACL 1,000 ML IV SCH (14:00)
[2022-06-14 17:00] LABS: Hematocrit 39.2 % (35.5-45.6); Hemoglobin 13.1 gm/dl (11.8-15.2); Mean Corpuscular HGB Conc 33 % (32-34); Mean Corpuscular Volume 94 fl (84-94); Platelet Count 176 K/mm3 (140-440); Red Blood Count 4.19 M/mm3 (3.65-5.03)
[2022-06-14 18:11] VITALS: BP 146/86
[2022-06-14 19:04] LABS: Basophils % (Manual) 0 % (0.0-1.8); Myelocytes # (Manual) 0.2 K/mm3; Total Cells Counted 100
[2022-06-14 19:07] LABS: Anisocytosis 1+; Platelet Estimate Consistent w Auto
== END 2022-06-14 18:10 | disposition home or self-care (01) ==
LOC: ED 03:17
DX: R07.9 Chest pain, unspecified (principal); E16.2 Hypoglycemia, unspecified; I11.0 Hypertensive heart disease with heart failure; I50.9 Heart failure, unspecified; I21.9 Acute myocardial infarction, unspecified; K76.9 Liver disease, unspecified; N28.9 Disorder of kidney and ureter, unspecified; M19.90 Unspecified osteoarthritis, unspecified site; Z21 Asymptomatic human immunodeficiency virus [HIV] infection status; J44.1 Chronic obstructive pulmonary disease with (acute) exacerbation; F17.200 Nicotine dependence, unspecified, uncomplicated; Z79.899 Other long term (current) drug therapy
CPT/HCPCS: 36415; 71046; 80053; 82962; 84484; 85007; 85025; 96374; 96376; 99284; J3490

== ENCOUNTER 2022-08-16 02:33 | Emergency (ER) | payer MEDICAID ==
[2022-08-16 06:48] LABS: Mucus,Urine FEW /HPF; RBC,Urine < 1.0 /HPF (0.0-6.0)
[2022-08-16 07:03] LABS: Color,Urine Yellow (Yellow); WBC,Urine < 1.0 /HPF (0.0-6.0)
[2022-08-16] MEDS ORDERED: HYDROcodone/ACETAMINOPHEN 5-325 MG TAB PO ONE (08:59)
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
--- NOTE | 2022-08-16 09:39 | Electrocardiograph Report ---
[facility] Test Date: 2022-08-16 Test Time: 05:09:17 Pat Name: MATHEW LEMUS Department: Room: Gender: M Emergency Planner: MELINDA : 1965 Requested By: ED DOC Order Number: [id number] Reading MD: [place] Measurements Intervals [place] Rate: 94 P: 83 MI: 160 QRS: 49 QRSD: 87 T: 56 QT: 395 QTc: 495 Interpretive Statements Sinus rhythm irbb Right atrial enlargement Left ventricular hypertrophy non specific st-t Compared to ECG 04/03/2022 03:38:32 Q waves now present Myocardial infarct finding no longer present Electronically Signed On 08-16-2022 9:38:40 EDT by [place]
[2022-08-16 10:52] VITALS: BP 118/80
== END 2022-08-16 10:52 | disposition home or self-care (01) ==
LOC: ED 02:33
DX: G89.29 Other chronic pain (principal); M54.50 Low back pain, unspecified; I11.0 Hypertensive heart disease with heart failure; I50.9 Heart failure, unspecified; M19.90 Unspecified osteoarthritis, unspecified site; J44.9 Chronic obstructive pulmonary disease, unspecified; G47.30 Sleep apnea, unspecified; Z79.82 Long term (current) use of aspirin; Z79.899 Other long term (current) drug therapy
CPT/HCPCS: 81001; 82962; 93005; 99284